=== PATIENT | female | born 1965 | race Caucasian/White ===

== ENCOUNTER 2024-05-10 13:04 | Inpatient (IN) | payer BC, SELFPAY ==
--- NOTE | ~2024-05-10 | XR_ITS ---
EXAMINATION: XR CHEST CLINICAL INFORMATION: Hip fracture COMPARISON: 08/23/2010 TECHNIQUE: Frontal view of the chest was obtained. FINDINGS: No focal consolidation, pulmonary edema, or pleural effusion. Stable cardiomediastinal silhouette. XR/XR chest 1V IMPRESSION: No acute cardiopulmonary findings. Electronically signed by: Damian Sharp MD 05/10/2024 03:53 PM EDT RP
--- NOTE | ~2024-05-10 | FL_ITS ---
EXAMINATION: FLUOROSCOPY GUIDANCE FOR NEEDLE PLACEMENT CLINICAL INFORMATION: Pinning right hip. COMPARISON: Hip radiographs yesterday. TECHNIQUE: Spot films and fluoroscopy provided during pin fixation of hip fracture. FINDINGS: 3 screws are seen extending through the right femoral neck. FLUOROSCOPY TIME: 6 minutes DOSE AREA PRODUCT: 4.34 uGy-m2 (microgray-meter squared) FL/FL guidance in OR IMPRESSION: Spot views obtained during right hip pinning. Please see Dr. Jerry Richard's operative note for full details. Electronically signed by: Bernard Black MD 05/11/2024 03:50 PM EDT
--- NOTE | ~2024-05-10 | XR_ITS ---
EXAMINATION: XR HIP, RIGHT CLINICAL INFORMATION: Fall. COMPARISON: None available. TECHNIQUE: AP view of the pelvis and AP and crosstable lateral views of the right hip. FINDINGS: There is an acute subcapital impaction fracture of the right proximal femur with slight valgus angulation. Bones are osteopenic. Left proximal femur is normal. No appreciable fractures of the innominate bones. Hip joints are well-preserved. Degenerative spondylosis is present in the lower lumbar spine. XR/XR hip RT w PEL1V IMPRESSION: Acute, valgus-impacted, right femoral subcapital fracture. Electronically signed by: Joseluis Osorio MD 05/10/2024 03:48 PM EDT RP
--- NOTE | 2024-05-10 13:07 | ECG_ITS ---
Test Reason : HIP FRACTURE Blood Pressure : / mmHG Vent. Rate : 076 BPM Atrial Rate : 076 BPM P-R Int : 170 ms QRS Dur : 090 ms QT Int : 406 ms P-R-T Axes : 061 -45 040 degrees QTc Int : 456 ms Normal sinus rhythm Left anterior fascicular block Abnormal ECG No previous ECGs available Referred By: Jonelle Piña Electronically Signed By:KACEY RUSSELL
[2024-05-10] MEDS: HYDROmorphone HCl 1 MG/ML SYRINGE IVPUSH ×3 (13:14→16:07)
[2024-05-10] MEDS: ondansetron HCL 4 MG/2 ML VIAL IVPUSH (13:14)
[2024-05-10 13:20] VITALS: BP 137/78; PULSE 78; RESP 14; TEMP 36.6; O2SAT 97; BMI 32.8
--- NOTE | 2024-05-10 13:26 | ED_ITS ---
HPI - Fall General Chief Complaint: Extremity Injury, Lower Stated Complaint: fracture right femoral head landed on hip Source: patient, EMS and old records reviewed Mode of arrival: EMS Limitations: no limitations History of Present Illness ED Provider: ELIEL HPI Narrative: 59 yo female with PMH of arthritis, DM2, not on thinners, 1 year R TKR at [facility] did well was working out today fell injuring R hip was able to get to urgent care who did xray showing R fem head fracture. She denies head strike or neck pain. No LOC. 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 No other injuries reported. MD complaint: fall Onset (ago): hour(s) (1) Fall from: standing Fall witnessed: yes, by bystander Place fall occurred: other Loss of consciousness: none Symptoms prior to fall: none Context: tripped/slipped Location of injury: pelvis Severity: moderate Quality: aching Associated symptoms (after fall): denies Related Data Allergies Allergy/AdvReac Type Severity Reaction Status Date / Time No Known Allergies Allergy Verified 05/10/24 13:20 [No Known Allergies*] Review of Systems 2 Review of Systems: Constitutional : No Fever, No Chills ENT/Mouth : No Ear Pain, No Hoarseness, No sore throat Eyes: No Eye Pain, No Swelling, No Redness, No Foreign Body Cardiovascular : No Chest Pain, No SOB Respiratory : No Cough, No Dyspnea Gastrointestinal : No Nausea, No Vomiting, No Diarrhea, No abdominal Pain Genitourinary : No Dysuria, No Hematuria Musculoskeletal : positive joint pain, No Myalgias, No Joint Swelling Skin : No Skin lacerations, No rash Neuro : No Weakness, No Numbness, No Loss of Consciousness, No Dizziness, No Headache Psych : No Anxiety/Panic, No Depression All other systems reviewed and are negative [facility] Past Medical History Attestation statement: The following information was validated with the patient. Source: old records reviewed Medical History (Updated 05/10/24 @ 16:00 by Jonelle Piña DO) Diabetes Surgical History (Updated 05/10/24 @ 13:32 by Jonelle Piña DO) Knee joint replacement status Social History Social History (Updated 05/10/24 @ 13:31 by Jonelle Piña DO) Patient Tobacco Use Status: Never used Tobacco Advance Directives: Yes Advance Directives Information Provided: Yes Advance Directives on File: No Do you have a plan to hurt others: No Plan Physical Exam 2 Vital Signs: Vital Signs: Last Vital Signs Temp 97.8 F 05/10/24 13:20 Pulse 78 05/10/24 13:20 Resp 14 05/10/24 13:20 BP 137/78 05/10/24 13:20 Pulse Ox 97 05/10/24 13:20 O2 Del Method Room Air 05/10/24 13:20 BMI result Body Mass Index 32.8 Appearance: Alert. Oriented X3. No acute distress. Eyes: Pupils equal, round and reactive to light. ENT: Pharynx normal. Neck: Normal inspection. Neck supple. CVS: Normal heart rate and rhythm. Pulses normal. Respiratory: No respiratory distress. Breath sounds normal. Abdomen: Soft and non-tender. Skin: Skin warm and dry. Normal skin color. Normal skin turgor. Extremities: No lower extremity edema. R hip area ttp no large hematoma - compartments are soft and compressible distal NV intact Neuro: Oriented X 3. No motor deficit. No sensory deficit. Medications Administered Generic Name Dose Route Start Last Admin Trade Name Freq PRN Reason Stop Dose Admin Lactated Ringer's 1,000 mls @ 100 mls/hr 05/10/24 13:15 05/10/24 13:35 Lr IVCONT 100 mls/hr .Q10H DMITRI Administration Discontinued Medications Generic Name Dose Route Start Last Admin Trade Name Freq PRN Reason Stop Dose Admin Hydromorphone HCl 1 mg 05/10/24 13:08 05/10/24 13:14 Hydromorphone Hcl 1 Mg/Ml Syringe IVPUSH 05/10/24 13:09 1 mg ONCE ONE Administration Protocol Hydromorphone HCl 1 mg 05/10/24 14:19 05/10/24 14:26 Hydromorphone Hcl 1 Mg/Ml Syringe IVPUSH 05/10/24 14:20 1 mg ONCE ONE Administration Protocol Ondansetron HCl 4 mg 05/10/24 13:08 05/10/24 13:14 Ondansetron Hcl 4 Mg/2 Ml Vial IVPUSH 05/10/24 13:09 4 mg ONCE ONE Administration Medical Decision Making Medical Decision Making MDM Narrative: 59 yo female with hx of DM2, R TKR about 1 year ago here with c/o R hip pain s/p fall while working out not on thinners no head injury + femur fracture at urgent care she is NV intact, compartment is soft at this time, xrays, EKG, IV dilaudid for pain, labs and admission for hip fracture. Differential Diagnosis Differential Diagnoses: The differential diagnosis associated with the presentation includes femur fracture Admission/Observation Consideration of admission/observation: Escalation of care including admission/observation considered admit for further management Consult Healthcare Provider Management of the patient was discussed with: [facility] (orthopedics aware will admit) Lab Data MDM Lab Attestation statement: I reviewed the patient's lab results. 05/10/24 14:25 05/10/24 14:25 Labs: Lab Results 05/10/24 Range/Units 14:25 WBC 13.3 H (4.8-10.8) X10*3/uL RBC 5.71 H (4.20-5.50) X10*6/uL Hgb 14.5 (12.0-16.0) g/dl Hct 43.8 (37.0-47.0) % MCV 76.7 L (80.0-98.0) fL MCH 25.4 L (27.0-33.0) pg MCHC 33.1 (31.0-35.0) g/dl RDW 13.1 (11.0-16.0) % Plt Count 246 (160-400) X10*3/uL MPV 8.8 L (9.4-12.3) fL Immature Gran % (Auto) 0.7 H (0.0-0.4) % Neut % (Auto) 75.2 H (45-73) % Lymph % (Auto) 19.2 L (20-40) % [place] % (Auto) 4.2 (2-11) % Eos % (Auto) 0.5 (0-4) % Baso % (Auto) 0.2 (0-2) % Lymph # (Auto) 2.6 (1.2-4.9) X10*3/uL [place] # (Auto) 0.6 (0.1-1.2) X10*3/uL Eos # (Auto) 0.1 (0.0-0.4) X10*3/uL Baso # (Auto) 0.0 (0.0-0.2) X10*3/uL Abs Immat Gran (auto) 0.09 H (0.00-0.03) X10*3/uL Absolute Neuts (auto) 10.0 H (2.0-8.3) x10*3/uL Absolute Nucleated RBC 0.000 (0.0-0.012) X10*3/uL Nucleated RBC % (auto) 0.0 (0.0-0.2) /100WBC PT 11.1 (10.9-12.4) SEC INR 1.0 (0.9-1.1) Sodium 141 (135-145) mmol/L Potassium 4.4 (3.3-5.1) mmol/L Chloride 108 (96-108) mmol/L Carbon Dioxide 27 (22-29) mmol/L Anion Gap 10 L (12-20) BUN 17 H (9-16) mg/dL Creatinine 0.85 (0.5-1.4) mg/dL Estim Creat Clear Calc 71.4 Estimated GFR > 60 Random Glucose 91 (60-115) mg/dL Calcium 10.1 (8.4-10.2) mg/dL Magnesium 2.3 (1.6-2.6) mg/dL Total Bilirubin 0.4 (0.0-1.0) mg/dL Direct Bilirubin 0.2 (0.0-0.5) mg/dL AST 24 (5-31) U/L ALT 20 (0-31) U/L Alkaline Phosphatase 94 (39-117) U/L Total Protein 7.3 (6.5-8.0) g/dL Albumin 4.6 (3.5-5.0) g/dL Blood Type A Positive Antibody Screen NEGATIVE Independent Interpretation I performed an independent interpretation of an: EKG and Plain X-Ray Interpretation: Rate: 76 Rhythm:NSR [place]: left Normal P waves. Normal SEVEN. Normal QRS complex. ST T wave : no MARLENI, inverted t waves V1 qTC: 456 prior studies: no acute ischemia The study has been interpreted contemporaneously by me. . Radiology Impression Discussion of test interpretation with radiology: I have reviewed the radiologist's reading. Independent Historian Clinical information obtained from an independent historian. History obtained from or confirmed by: EMS External Record Review External record reviewed: Office record Critical Care Time Critical Care Time Critical Care Time: Yes Total Critical Care Time: 45 Attestation: IV dilaudid x 2, review of records, consult, admission I attest to this time spent taking care of the patient Discharge Plan Discharge Clinical Impression: Closed subcapital fracture of femur Patient Disposition: Admitted As Inpatient Print Language: Telugu
[2024-05-10] MEDS: Lactated Ringers 1,000 ML 100 ML IVCONT (13:35)
[2024-05-10 14:32] LABS: MANUAL DIFF FLAG NO
[2024-05-10 14:36] LABS: Basophils Percent Auto 0.2 % (0-2); Eosinophils Absolute Auto 0.1 X10*3/uL (0.0-0.4); Eosinophils Percent Auto 0.5 % (0-4); Hematocrit 43.8 % (37.0-47.0); Hemoglobin 14.5 g/dl (12.0-16.0); Imm Gran Abs Auto 0.09 X10*3/uL (0.00-0.03); Imm Gran Pct Auto 0.7 % (0.0-0.4); Lymphocytes Absolute Auto 2.6 X10*3/uL (1.2-4.9); Lymphocytes Percent Auto 19.2 % (20-40); Mean Corpuscular HGB Conc 33.1 g/dl (31.0-35.0); Mean Corpuscular Hemoglobin 25.4 pg (27.0-33.0); Mean Corpuscular Volume 76.7 fL (80.0-98.0); Mean Platelet Volume 8.8 fL (9.4-12.3); Monocytes Absolute Auto 0.6 X10*3/uL (0.1-1.2); Monocytes Percent Auto 4.2 % (2-11); Neutrophils Percent Auto 75.2 % (45-73); Platelet Count 246 X10*3/uL (160-400); Red Blood Count 5.71 X10*6/uL (4.20-5.50); Red Cell Distribution Width 13.1 % (11.0-16.0); White Blood Count 13.3 X10*3/uL (4.8-10.8)
[2024-05-10 14:48] LABS: Prothrombin Time 11.1 SEC (10.9-12.4)
[2024-05-10 15:09] LABS: Alanine Aminotransferase 20 U/L (0-31); Albumin Level 4.6 g/dL (3.5-5.0); Alkaline Phosphatase 94 U/L (39-117); Anion Gap 10 (12-20); Aspartate Amino Transferase 24 U/L (5-31); Bilirubin Direct 0.2 mg/dL (0.0-0.5); Bilirubin Total 0.4 mg/dL (0.0-1.0); Blood Urea Nitrogen 17 mg/dL (9-16); Calcium 10.1 mg/dL (8.4-10.2); Carbon Dioxide 27 mmol/L (22-29); Chloride 108 mmol/L (96-108); Creatinine Clr Calc Pharmacy 71.4; Estimated Glomerular Filt Rate > 60; Glucose Random 91 mg/dL (60-115); Magnesium 2.3 mg/dL (1.6-2.6); Potassium 4.4 mmol/L (3.3-5.1); Sodium 141 mmol/L (135-145); Total Protein 7.3 g/dL (6.5-8.0)
[2024-05-10 16:07] VITALS: RESP 18
[2024-05-10 16:09] VITALS: BP 105/56; PULSE 85; RESP 16; TEMP 37; O2SAT 100
--- NOTE | 2024-05-10 16:34 | PHA.MEDREC ---
Addendum entered by Cathy Forrest RP 05/10/24 16:56: Reviewed by [facility] Original Note: Pharmacy Consult ? Medication Reconciliation Pharmacy has completed the medication reconciliation. Patient confirmed her medications. She confirmed her Ozempic dose once a week on Mondays and she states she last took to Monday05/06/24. She also confirmed she was taking Ferrous Sulfate 325mg 3 times a week but due to her not reacting well on it she switched to Accrufer 30mg BID. The patient and her state she is on a Combination OTC suppliment medication and the said he would bring it in [facility] for us to add to her list. The pateint states she took her medication this morning.
[2024-05-10 18:38] VITALS: BP 124/57; PULSE 79; RESP 18; TEMP 36.8; O2SAT 97
[2024-05-10] MEDS: oxyCODONE HCl Immed Release 5 MG TABLET PO (18:39)
--- NOTE | 2024-05-10 20:37 | HO.PM.IMCN ---
History of Present Illness Data of Consult Service Date: 05/10/24 Primary Care Provider: Gin Villafuerte NP [facility] Reason for consult: Medical management, surgical risk stratification Patient is a 59-year-old female with a PMH significant for mnu-xncgbad-goedlqbxr type 2 diabetes, iron deficiency anemia, hx of right TKA, HLD, and osteopenia who initially presented to the ED earlier today for evaluation of right hip pain after mechanical fall while exercising. X-rays indicated patient had an acute, valgus impacted right femoral subcapital fracture and patient was admitted to the hospital under Orthopedics for surgery in the morning. Hospitalist consult for medical management and surgical risk stratification. Patient reports she continues to experience intermittent significant right hip pain that is only partially controlled with current analgesic regimen. Otherwise patient has no acute medical complaints. No fever, chills, nausea, vomiting. No abdominal pain. Denies numbness and tingling in extremities. No chest pain/pressure, palpitations. No shortness a breath or difficulty breathing. Patient states she has a history of chronic constipation for which she often takes Colace t.i.d. every other day. Also reports that her diabetes is well managed with last A1c around 6.3. Patient has been taken off of most of her diabetic medications except for Farxiga and Ozempic. Does not regularly check her POCs but when she does they are usually under 100. Patient denies any significant cardiac history including CAD or CHF, no history of stroke or TIA. Review of Systems Review of Systems: Right hip pain Denies numbness or tingling in extremities Patient has no other acute medical complaints at this time [facility] Medical History (Updated 05/10/24 @ 22:23 by ARNULFO Tracey) Iron deficiency anemia Chronic constipation Osteopenia HLD (hyperlipidemia) Non-insulin dependent type 2 diabetes mellitus Diabetes Surgical History (Updated 05/10/24 @ 13:32 by Jonelle Piña DO) Knee joint replacement status Social History (Updated 05/10/24 @ 13:31 by Jonelle Piña DO) Household Members: Family Housing: House Do you presently have visiting nurse or other home services: No Patient Tobacco Use Status: Never used Tobacco Use of substances other than those prescribed or required for medical reasons: No Have you been hit, kicked, punched, or otherwise hurt by someone within the past year? If so, by whom?: No Advance Directives: No Advance Directives Information Provided: No Advance Directives on File: No Do you have a plan to hurt others: No Plan Recently lost weight without trying: No Patient : No : No Poor oral hygiene: No Meds Allergies Allergy/AdvReac Type Severity Reaction Status Date / Time No Known Allergies Allergy Verified 05/10/24 13:20 [No Known Allergies*] Active Medications: Current Medications Acetaminophen (Acetaminophen 325 Mg Tablet) 650 mg PO Q6H PRN PRN Reason: Pain, Mild (Pain Scale 1-3), fever or headache Lactated Ringer's (Lr) 1,000 mls @ 100 mls/hr IVCONT .Q10H [facility] Last Admin: 05/10/24 13:35 Dose: 100 mls/hr Lactated Ringer's (Lr) 1,000 mls @ 100 mls/hr IVCONT .Q10H [facility] Last Admin: 05/10/24 18:43 Dose: Not Given Cefazolin Sodium/Dextrose (Ancef) 2 gm in 50 mls @ 100 mls/hr IV PREOP ONE Stop: 05/11/24 05:59 Mirabegron (Mirabegron 25 Mg Tab.Er.24h) 25 mg PO DAILY [facility] Non-Formulary Medication (Ferric Maltol [Accrufer]) 30 mg PO BID [facility] Oxycodone HCl (Oxycodone Hcl Immed Release 5 Mg Tablet) 5 mg PO Q4H PRN PRN Reason: Pain, Moderate(Pain Scale 4-6) Last Admin: 05/10/24 18:39 Dose: 5 mg Sodium Chloride (0.9 % Sodium Chloride Flush 3 Ml Syringe) 3 ml IVFLUSH QSHIFT [facility] Home Medications ?Medication ?Instructions ?Recorded ?Confirmed ?Last Taken ?Type apremilast 30 mg tablet (Otezla) 30 mg PO BID 05/10/24 05/10/24 05/10/24 History dapagliflozin propanediol 10 mg 10 mg PO DAILY 05/10/24 05/10/24 05/10/24 History tablet (Farxiga) ferric maltol 30 mg capsule 30 mg PO BID 05/10/24 05/10/24 05/10/24 History (Accrufer) mirabegron 25 mg tablet,extended 25 mg PO DAILY 05/10/24 05/10/24 05/10/24 History release 24 hr semaglutide 0.25 mg or 0.5 mg (2 2 mg subcut MO 05/10/24 05/10/24 05/06/24 History mg/3 mL) subcutaneous pen injector (Ozempic) Physical Exam Vital Signs and Narrative: Vital Signs: Last Vital Signs Temp 98.2 F 05/10/24 18:38 Pulse 79 05/10/24 18:38 Resp 18 05/10/24 18:38 BP 124/57 L 05/10/24 18:38 Pulse Ox 97 05/10/24 18:38 O2 Del Method Room Air 05/10/24 18:38 BMI result Body Mass Index 32.8 General: AOx3, no acute distress Resp: CTA bilaterally CVS: S1, S2, RRR GI: +BS, NT, no distention Skin: Warm, dry Neuro: Cranial nerves II-XII grossly intact bilaterally. Motor grossly intact bilaterally Muskuloskeletal: Right leg shortened and externally rotated. Reduced right hip ROM secondary to pain. Extremities: No edema Psych: Appropriate affect Results Labs 05/10/24 14:25 05/10/24 14:25 Labs: Laboratory Results - last 24 hr 05/10/24 14:25 MCV 76.7 L MCH 25.4 L MCHC 33.1 RDW 13.1 Plt Count 246 MPV 8.8 L Immature Gran % (Auto) 0.7 H Neut % (Auto) 75.2 H Lymph % (Auto) 19.2 L [place] % (Auto) 4.2 Eos % (Auto) 0.5 Baso % (Auto) 0.2 Lymph # (Auto) 2.6 [place] # (Auto) 0.6 Eos # (Auto) 0.1 Baso # (Auto) 0.0 Abs Immat Gran (auto) 0.09 H Absolute Neuts (auto) 10.0 H Absolute Nucleated RBC 0.000 Nucleated RBC % (auto) 0.0 PT 11.1 INR 1.0 Anion Gap 10 L Estim Creat Clear Calc 71.4 Estimated GFR > 60 Random Glucose 91 Calcium 10.1 Magnesium 2.3 Total Bilirubin 0.4 Direct Bilirubin 0.2 AST 24 ALT 20 Alkaline Phosphatase 94 Total Protein 7.3 Albumin 4.6 Blood Type A Positive Antibody Screen NEGATIVE Imaging Radiologist's Impressions: Impressions Chest X-Ray 05/10/24 13:07 IMPRESSION: No acute cardiopulmonary findings. Electronically signed by: Damian Sharp MD 05/10/2024 03:53 PM EDT RP Hip/Pelvis X-Ray 05/10/24 13:11 IMPRESSION: Acute, valgus-impacted, right femoral subcapital fracture. Electronically signed by: Joseluis Osorio MD 05/10/2024 03:48 PM EDT RP Assessment and Plan (1) Closed subcapital fracture of femur: Qualifiers: Encounter type: initial encounter Laterality: right Qualified Code(s): S72.011A - Unspecified intracapsular fracture of right femur, initial encounter for closed fracture Status: Acute Plan Patient is a 59-year-old female with a PMH significant for agt-xdkaqxu-davtourzv type 2 diabetes, iron deficiency anemia, hx of right TKA, HLD, and osteopenia who initially presented to the ED earlier today for evaluation of right hip pain after mechanical fall while exercising. X-rays indicated patient had an acute, valgus impacted right femoral subcapital fracture and patient was admitted to the hospital under Orthopedics for surgery in the morning. Hospitalist consult for medical management and surgical risk stratification. Right hip fracture X-ray showed acute, valgus impacted, right femoral subcapital fracture Plan as per Orthopedics Patient without significant cardiac history: No CAD, mi, CHF, or CVA EKG showed normal sinus rhythm without ischemic changes Patient is a low cardiac class 1 risk for planned procedure with RCRI of 0 points No indication for additional treatment or workup prior to planned procedure Tni-veozcgz-dzgbiuyyf type 2 diabetes Has been well-controlled with diet, patient removed from most diabetic medications Random glucose 91 No need for sliding-scale insulin Hold Farxiga, Ozempic Diabetic diet once no longer NPO tomorrow Leukocytosis Patient has wbc's 13.3 Likely reactionary, no indication of infection Iron-deficiency anemia H&H stable and WNL at 14.5/43.8 Continue Accrufer Chronic constipation Patient reports takes Colace t.i.d. every other day to maintain regular bowel function Patient will be on opioids and at risk for worsening constipation Will place on bowel regimen: Colace b.i.d. and MiraLax daily Thank you for allowing us to participate in the care of this patient. Signing off at this time. Please re-consult if any acute complaints or issues arise.
[2024-05-10] MEDS: HYDROmorphone HCl 0.5 MG/0.5 ML SYRINGE IVPUSH (21:17)
[2024-05-10 21:47] VITALS: RESP 18
[2024-05-11] VITALS (14 sets, daily range): BP systolic 100–127; BP diastolic 27–88; PULSE 64–87; RESP 14–20; TEMP 35.9–37; O2SAT 91–98; BMI 31.7
[2024-05-11] MEDS: HYDROmorphone HCl 0.5 MG/0.5 ML SYRINGE IVPUSH ×4 (01:40→18:01)
[2024-05-11] MEDS: Lactated Ringers 1,000 ML 100 ML IVCONT ×3 (01:43→23:14)
[2024-05-11 07:14] LABS: MANUAL DIFF FLAG NO
[2024-05-11 07:31] LABS: Basophils Percent Auto 0.2 % (0-2); Eosinophils Absolute Auto 0.1 X10*3/uL (0.0-0.4); Eosinophils Percent Auto 0.9 % (0-4); Hematocrit 42.1 % (37.0-47.0); Hemoglobin 13.6 g/dl (12.0-16.0); Imm Gran Abs Auto 0.04 X10*3/uL (0.00-0.03); Imm Gran Pct Auto 0.4 % (0.0-0.4); Lymphocytes Absolute Auto 1.7 X10*3/uL (1.2-4.9); Lymphocytes Percent Auto 18.5 % (20-40); Mean Corpuscular HGB Conc 32.3 g/dl (31.0-35.0); Mean Corpuscular Hemoglobin 25.4 pg (27.0-33.0); Mean Corpuscular Volume 78.7 fL (80.0-98.0); Monocytes Absolute Auto 0.5 X10*3/uL (0.1-1.2); Monocytes Percent Auto 5.3 % (2-11); Neutrophils Absolute Auto 6.9 x10*3/uL (2.0-8.3); Neutrophils Percent Auto 74.7 % (45-73); Platelet Count 222 X10*3/uL (160-400); Red Blood Count 5.35 X10*6/uL (4.20-5.50); Red Cell Distribution Width 13.2 % (11.0-16.0); White Blood Count 9.3 X10*3/uL (4.8-10.8)
[2024-05-11 07:53] LABS: Anion Gap 13 (12-20); Blood Urea Nitrogen 18 mg/dL (9-16); Carbon Dioxide 26 mmol/L (22-29); Chloride 105 mmol/L (96-108); Creatinine Clr Calc Pharmacy 72.7; Estimated Glomerular Filt Rate > 60; Glucose Fasting 114 mg/dL (60-99); Potassium 4.4 mmol/L (3.3-5.1); Sodium 140 mmol/L (135-145)
--- NOTE | 2024-05-11 08:19 | HO.ANESPROP2 ---
HPI - Anesthesia Eval Consult details Narrative: right femur fracture PMFSH Active Problems Active Problems: All Active Problems Closed subcapital fracture of femur (Acute) Past Medical History Medical History (Updated 05/10/24 @ 22:23 by ARNULFO Tracey) Iron deficiency anemia Chronic constipation Osteopenia HLD (hyperlipidemia) Non-insulin dependent type 2 diabetes mellitus Diabetes Family History Family history of problems with anesthesia: No Surgical History Surgical History (Updated 05/10/24 @ 13:32 by Jonelle Piña DO) Knee joint replacement status History of Problems with Anesthesia: No Social History Social History (Updated 05/10/24 @ 13:31 by Jonelle Piña DO) Household Members: Family Housing: House Do you presently have visiting nurse or other home services: No Comment: pre-op bedrest, fx hip Patient Tobacco Use Status: Never used Tobacco Use of substances other than those prescribed or required for medical reasons: No Currently Displaying Signs/Symptoms of Drug Intoxication Withdrawal: No Have you been hit, kicked, punched, or otherwise hurt by someone within the past year? If so, by whom?: No Advance Directives: No Advance Directives Information Provided: No Advance Directives on File: No Do you have a plan to hurt others: No Plan Recently lost weight without trying: No Patient : No : No Poor oral hygiene: No Meds Allergies Allergy/AdvReac Type Severity Reaction Status Date / Time No Known Allergies Allergy Verified 05/10/24 13:20 [No Known Allergies*] Active Medications: Current Medications Acetaminophen (Acetaminophen 325 Mg Tablet) 650 mg PO Q6H PRN PRN Reason: Pain, Mild (Pain Scale 1-3), fever or headache Docusate Sodium (Docusate Sodium 100 Mg Capsule) 100 mg PO BID [facility] Last Admin: 05/11/24 07:38 Dose: Not Given Hydromorphone HCl (Hydromorphone Hcl 0.5 Mg/0.5 Ml Syringe) 0.5 mg IVPUSH Q4H PRN; Protocol PRN Reason: Pain, Severe (Pain Scale 7-10) Last Admin: 05/11/24 06:13 Dose: 0.5 mg Lactated Ringer's (Lr) 1,000 mls @ 100 mls/hr IVCONT .Q10H [facility] Last Admin: 05/11/24 01:43 Dose: 100 mls/hr Mirabegron (Mirabegron 25 Mg Tab.Er.24h) 25 mg PO DAILY [facility] Non-Formulary Medication (Ferric Maltol [Accrufer]) 30 mg PO BID [facility] Oxycodone HCl (Oxycodone Hcl Immed Release 5 Mg Tablet) 5 mg PO Q4H PRN PRN Reason: Pain, Moderate(Pain Scale 4-6) Last Admin: 05/10/24 18:39 Dose: 5 mg Polyethylene Glycol (Polyethylene Glycol 3350 17 Gm Powd.Pack) 17 gm PO DAILY [facility] Last Admin: 05/11/24 07:38 Dose: Not Given Sodium Chloride (0.9 % Sodium Chloride Flush 3 Ml Syringe) 3 ml IVFLUSH QSHIFT [facility] Last Admin: 05/11/24 07:44 Dose: Not Given Home Medications ?Medication ?Instructions ?Recorded ?Confirmed ?Last Taken ?Type apremilast 30 mg tablet (Otezla) 30 mg PO BID 05/10/24 05/10/24 05/10/24 History dapagliflozin propanediol 10 mg 10 mg PO DAILY 05/10/24 05/10/24 05/10/24 History tablet (Farxiga) ferric maltol 30 mg capsule 30 mg PO BID 05/10/24 05/10/24 05/10/24 History (Accrufer) mirabegron 25 mg tablet,extended 25 mg PO DAILY 05/10/24 05/10/24 05/10/24 History release 24 hr semaglutide 0.25 mg or 0.5 mg (2 2 mg subcut MO 05/10/24 05/10/24 05/06/24 History mg/3 mL) subcutaneous pen injector (Ozempic) Exam Height,Weight and Vital Signs: Height 5 ft 3 in Weight 81.2 kg Last Vital Signs Temp 98.1 F 05/11/24 07:14 Pulse 64 05/11/24 07:14 Resp 16 05/11/24 07:14 BP 100/58 L 05/11/24 07:14 Pulse Ox 96 05/11/24 07:14 O2 Del Method Room Air 05/11/24 07:14 Pertinent Lab Results Pertinent Lab Results: Laboratory Tests 05/10/24 05/11/24 14:25 06:03 WBC 13.3 H 9.3 RBC 5.71 H 5.35 Hgb 14.5 13.6 Hct 43.8 42.1 MCV 76.7 L 78.7 L MCH 25.4 L 25.4 L MCHC 33.1 32.3 RDW 13.1 13.2 Plt Count 246 222 MPV 8.8 L 9.0 L Immature Gran % (Auto) 0.7 H 0.4 Neut % (Auto) 75.2 H 74.7 H Lymph % (Auto) 19.2 L 18.5 L [place] % (Auto) 4.2 5.3 Eos % (Auto) 0.5 0.9 Baso % (Auto) 0.2 0.2 Lymph # (Auto) 2.6 1.7 [place] # (Auto) 0.6 0.5 Eos # (Auto) 0.1 0.1 Baso # (Auto) 0.0 0.0 Abs Immat Gran (auto) 0.09 H 0.04 H Absolute Neuts (auto) 10.0 H 6.9 Absolute Nucleated RBC 0.000 0.000 Nucleated RBC % (auto) 0.0 0.0 PT 11.1 INR 1.0 Sodium 141 140 Potassium 4.4 4.4 Chloride 108 105 Carbon Dioxide 27 26 Anion Gap 10 L 13 BUN 17 H 18 H Creatinine 0.85 0.82 Estim Creat Clear Calc 71.4 72.7 Estimated GFR > 60 > 60 Random Glucose 91 Fasting Glucose 114 H Calcium 10.1 9.0 D Magnesium 2.3 Total Bilirubin 0.4 Direct Bilirubin 0.2 AST 24 ALT 20 Alkaline Phosphatase 94 Total Protein 7.3 Albumin 4.6 Blood Type A Positive Antibody Screen NEGATIVE Airway Mallampati Class: II TM Dist: >3cm Neck ROM: Full Loose/Missing/Broken Teeth: No Heart: RRR Lungs: CTA Assessment and Plan Assessment Anesthesia Assessment: Anesthesia Plan Discussed and Chart Reviewed Final Anesthetic Review Family History of Problems with Anesthesia: No History of Problems with Anesthesia: No NPO: Yes ASA Class: III Final Preanesthetic Review: No Changes in Pt Med Stat, Meds/Allgs Chart Reviewed, Consent Obtained/Reviewed and Anes Risks/Benef Reviewed Patient Risk: Intermediate Procedure Risk: Intermediate Anesthetic Plan Anesthetic Plan: GA Disposition: Standard PACU
--- NOTE | 2024-05-11 08:29 | MHC.SHP ---
Pre-Procedural Eval Section A - 24 Hr Update-Section A only Date of Service: 05/11/24 The patient is an INPATIENT: Yes Changes since office visit: No Cold of Flu in the past 2 weeks, No New Medical Problems, No Changes in Medication and No Patient answered all questions The patient has been examined within 24 hours of the surgical procedure. The History & Physical has been completed within 30 days and I have reviewed it.: Yes Section B - Complete if H&P > 30 days Chief Complaint: R hip fracture Allergies: Allergies Allergy/AdvReac Type Severity Reaction Status Date / Time No Known Allergies Allergy Verified 05/10/24 13:20 [No Known Allergies*] Plan I have reviewed the history and physical and performed a pertinent physical examination on my patient. No changes have occurred unless specified. Time Spent With Patient Time: Total time managing care of this patient today ____ minutes.
--- NOTE | 2024-05-11 08:48 | P.CONOP_ITS ---
History of Present Illness HPI Consult date: 05/10/24 Chief complaint: R hip fracture Narrative: Patient is a 59-year-old female past medical history significant for type 2 diabetes mellitus who presents to the emergency department after a fall on her right hip Patient reports that she was exercising, when she fell, and immediately began to experience significant pain in the right hip Patient evaluated in the emergency department, where x-rays were taken revealing a minimally displaced subcapital fracture of the right femur Patient reports that she is in significant discomfort at this time Patient reports normal sensation to the distal right lower extremity No other acute complaints or concerns at this time Review of Systems 2 Review of Systems: Yes all other systems are reviewed and are negative PMFSH Past Medical History Medical History (Updated 05/10/24 @ 22:23 by ARNULFO Tracey) Iron deficiency anemia Chronic constipation Osteopenia HLD (hyperlipidemia) Non-insulin dependent type 2 diabetes mellitus Diabetes Surgical History Surgical History (Updated 05/10/24 @ 13:32 by Jonelle Piña DO) Knee joint replacement status Social History Social History (Updated 05/10/24 @ 13:31 by Jonelle Piña DO) Household Members: Family Housing: House Do you presently have visiting nurse or other home services: No Comment: pre-op bedrest, fx hip Patient Tobacco Use Status: Never used Tobacco Use of substances other than those prescribed or required for medical reasons: No Currently Displaying Signs/Symptoms of Drug Intoxication Withdrawal: No Have you been hit, kicked, punched, or otherwise hurt by someone within the past year? If so, by whom?: No Advance Directives: No Advance Directives Information Provided: No Advance Directives on File: No Do you have a plan to hurt others: No Plan Recently lost weight without trying: No Patient : No : No Poor oral hygiene: No Meds Allergies Allergy/AdvReac Type Severity Reaction Status Date / Time No Known Allergies Allergy Verified 05/10/24 13:20 [No Known Allergies*] Active Medications: Current Medications Acetaminophen (Acetaminophen 325 Mg Tablet) 650 mg PO Q6H PRN PRN Reason: Pain, Mild (Pain Scale 1-3), fever or headache Docusate Sodium (Docusate Sodium 100 Mg Capsule) 100 mg PO BID DMITRI Last Admin: 05/11/24 07:38 Dose: Not Given Droperidol (Droperidol 5 Mg/2 Ml Vial) 0.625 mg IVPUSH ONCE PRN PRN Reason: intractable nausea Stop: 05/11/24 14:24 Fentanyl (Fentanyl Citrate/Pf 100 Mcg/2 Ml Vial) 50 mcg IVPUSH Q5M PRN PRN Reason: Pain, Severe (Pain Scale 7-10) Stop: 05/11/24 14:23 Hydromorphone HCl (Hydromorphone Hcl 0.5 Mg/0.5 Ml Syringe) 0.5 mg IVPUSH Q4H PRN; Protocol PRN Reason: Pain, Severe (Pain Scale 7-10) Last Admin: 05/11/24 06:13 Dose: 0.5 mg Hydromorphone HCl (Hydromorphone Hcl 0.5 Mg/0.5 Ml Syringe) 0.5 mg IVPUSH Q5M PRN PRN Reason: Pain, Moderate to Severe (Pain Scale 4-10) Stop: 05/11/24 14:24 Lactated Ringer's (Lr) 1,000 mls @ 100 mls/hr IVCONT .Q10H [facility] Last Infusion: 05/11/24 08:00 Dose: 0 mls/hr Mirabegron (Mirabegron 25 Mg Tab.Er.24h) 25 mg PO DAILY [facility] Naloxone HCl (Naloxone Hcl 0.4 Mg/Ml Vial) 0.04 mg IVPUSH Q5M PRN PRN Reason: Excessive sedation or RR < 8 Non-Formulary Medication (Ferric Maltol [Accrufer]) 30 mg PO BID [facility] Oxycodone HCl (Oxycodone Hcl Immed Release 5 Mg Tablet) 5 mg PO Q4H PRN PRN Reason: Pain, Moderate(Pain Scale 4-6) Last Admin: 05/10/24 18:39 Dose: 5 mg Polyethylene Glycol (Polyethylene Glycol 3350 17 Gm Powd.Pack) 17 gm PO DAILY [facility] Last Admin: 05/11/24 07:38 Dose: Not Given Sodium Chloride (0.9 % Sodium Chloride Flush 3 Ml Syringe) 3 ml IVFLUSH QSHIFT [facility] Last Admin: 05/11/24 07:44 Dose: Not Given Home Medications ?Medication ?Instructions ?Recorded ?Confirmed ?Last Taken ?Type apremilast 30 mg tablet (Otezla) 30 mg PO BID 05/10/24 05/10/24 05/10/24 History dapagliflozin propanediol 10 mg 10 mg PO DAILY 05/10/24 05/10/24 05/10/24 History tablet (Farxiga) ferric maltol 30 mg capsule 30 mg PO BID 05/10/24 05/10/24 05/10/24 History (Accrufer) mirabegron 25 mg tablet,extended 25 mg PO DAILY 05/10/24 05/10/24 05/10/24 History release 24 hr semaglutide 0.25 mg or 0.5 mg (2 2 mg subcut MO 05/10/24 05/10/24 05/06/24 History mg/3 mL) subcutaneous pen injector (Ozempic) Physical Exam 2 Vital Signs: Vital Signs: Last Vital Signs Temp 98.1 F 05/11/24 07:14 Pulse 64 05/11/24 07:14 Resp 16 05/11/24 07:14 BP 100/58 L 05/11/24 07:14 Pulse Ox 96 05/11/24 07:14 O2 Del Method Room Air 05/11/24 07:14 BMI result Body Mass Index 31.7 Extrem: Other: On inspection, there is no visible deformity of the patient's right hip No limb shortening or rotation No erythema, ecchymosis, edema noted No lacerations, abrasions, open areas No evidence of infection Patient reports tenderness to gentle palpation about the hip Patient is able to flex and extend the digits of the right foot without difficulty Distal sensation intact Capillary refill brisk Results Labs 05/11/24 06:03 05/11/24 06:03 Labs: Abnormal lab results 05/10/24 05/11/24 Range/Units 14:25 06:03 WBC 13.3 H (4.8-10.8) X10*3/uL RBC 5.71 H (4.20-5.50) X10*6/uL MCV 76.7 L 78.7 L (80.0-98.0) fL MCH 25.4 L 25.4 L (27.0-33.0) pg MPV 8.8 L 9.0 L (9.4-12.3) fL Immature Gran % (Auto) 0.7 H (0.0-0.4) % Neut % (Auto) 75.2 H 74.7 H (45-73) % Lymph % (Auto) 19.2 L 18.5 L (20-40) % Abs Immat Gran (auto) 0.09 H 0.04 H (0.00-0.03) X10*3/uL Absolute Neuts (auto) 10.0 H (2.0-8.3) x10*3/uL Anion Gap 10 L (12-20) BUN 17 H 18 H (9-16) mg/dL Fasting Glucose 114 H (60-99) mg/dL H & H 05/10/24 05/11/24 Range/Units 14:25 06:03 Hgb 14.5 13.6 (12.0-16.0) g/dl Hct 43.8 42.1 (37.0-47.0) % Coagulation 05/10/24 Range/Units 14:25 INR 1.0 (0.9-1.1) All other labs normal. Diagnostic results Hip x-ray: report reviewed and image reviewed (X-rays obtained in the ED today and independently reviewed by me, Lalo Arango PA-C, demonstrate minimally displaced subcapital fracture of the right femur. ) Assessment and Plan Plan 1. Subcapital fracture of right hip Date of injury 05/10/2024 Patient is discussed with Dr. Moon, who was not available to see the patient with me at this time, and a collaborative treatment plan was formed: At this time, the patient is informed that surgery is the best treatment option for her current fracture, and that a pinning of the right hip is the procedure indicated at this time due to the minimally displaced nature of her fracture Patient is amenable to this plan Patient will be admitted to the hospital on orthopedic service Medicine will be consulted for preoperative clearance and T2DM management I educated the patient about the condition. I discussed both operative and nonoperative treatment options. The patient would like to proceed with surgery. [] The risks and benefits of operative treatment were discussed with the patient and the patient wishes to proceed with surgery. These risks include, but are not limited to, risk of damage to blood vessels, nerves, tendons, infection, recurrence, incomplete relief of preoperative symptoms, persistent pain, possible need for further surgery, and the risks associated with regional blocks and/or anesthesia. Plan is to take the patient to the operating room at some point in the next few weeks for the following procedures: [] All of the preoperative paperwork including the consent was discussed today. All of the patient's questions were answered in the clinic today. The patient understands that they will be in contact with our manufacturing scheduler to discuss scheduling their procedure. [Note particular patient concerns here] Patient denies diabetes, blood thinners, asthma, heart issues, lung issues, kidney issues, or current smoking. Procedures Date of Service Date of Service: 05/11/24
--- NOTE | 2024-05-11 08:54 | PM.HPOR ---
History of Present Illness History of Present Illness Date of Service: 05/10/24 Chief complaint: R hip fracture Narrative: Audrey Askew is a 59 year old female with past medical history significant for R TKA and type 2 diabetes being evaluated in the emergency department for right hip pain Patient reports that earlier today, she was exercising, when she fell onto her right hip, and immediately began experiencing significant discomfort X-rays taken in the ED revealed minimally displaced subcapital fracture of the right femoral neck Patient reports that she is currently in significant discomfort in her right hip, primarily in the groin Patient reports normal sensation to the distal right lower extremity No other acute complaints or concerns at this time. Review of Systems Review of Systems: Yes all other systems are reviewed and are negative PMFSH Past Medical History Medical History (Updated 05/10/24 @ 22:23 by ARNULFO Tracey) Iron deficiency anemia Chronic constipation Osteopenia HLD (hyperlipidemia) Non-insulin dependent type 2 diabetes mellitus Diabetes Surgical History Surgical History (Updated 05/10/24 @ 13:32 by Jonelle Piña DO) Knee joint replacement status Social History Social History (Updated 05/10/24 @ 13:31 by Jonelle Piña DO) Household Members: Family Housing: House Do you presently have visiting nurse or other home services: No Comment: pre-op bedrest, fx hip Patient Tobacco Use Status: Never used Tobacco Use of substances other than those prescribed or required for medical reasons: No Currently Displaying Signs/Symptoms of Drug Intoxication Withdrawal: No Have you been hit, kicked, punched, or otherwise hurt by someone within the past year? If so, by whom?: No Advance Directives: No Advance Directives Information Provided: No Advance Directives on File: No Do you have a plan to hurt others: No Plan Recently lost weight without trying: No Patient : No : No Poor oral hygiene: No Meds Allergies Allergy/AdvReac Type Severity Reaction Status Date / Time No Known Allergies Allergy Verified 05/10/24 13:20 [No Known Allergies*] Active Medications: Current Medications Acetaminophen (Acetaminophen 325 Mg Tablet) 650 mg PO Q6H PRN PRN Reason: Pain, Mild (Pain Scale 1-3), fever or headache Docusate Sodium (Docusate Sodium 100 Mg Capsule) 100 mg PO BID DMITRI Last Admin: 05/11/24 07:38 Dose: Not Given Droperidol (Droperidol 5 Mg/2 Ml Vial) 0.625 mg IVPUSH ONCE PRN PRN Reason: intractable nausea Stop: 05/11/24 14:24 Fentanyl (Fentanyl Citrate/Pf 100 Mcg/2 Ml Vial) 50 mcg IVPUSH Q5M PRN PRN Reason: Pain, Severe (Pain Scale 7-10) Stop: 05/11/24 14:23 Hydromorphone HCl (Hydromorphone Hcl 0.5 Mg/0.5 Ml Syringe) 0.5 mg IVPUSH Q4H PRN; Protocol PRN Reason: Pain, Severe (Pain Scale 7-10) Last Admin: 05/11/24 06:13 Dose: 0.5 mg Hydromorphone HCl (Hydromorphone Hcl 0.5 Mg/0.5 Ml Syringe) 0.5 mg IVPUSH Q5M PRN PRN Reason: Pain, Moderate to Severe (Pain Scale 4-10) Stop: 05/11/24 14:24 Lactated Ringer's (Lr) 1,000 mls @ 100 mls/hr IVCONT .Q10H [facility] Last Infusion: 05/11/24 08:00 Dose: 0 mls/hr Mirabegron (Mirabegron 25 Mg Tab.Er.24h) 25 mg PO DAILY [facility] Naloxone HCl (Naloxone Hcl 0.4 Mg/Ml Vial) 0.04 mg IVPUSH Q5M PRN PRN Reason: Excessive sedation or RR < 8 Non-Formulary Medication (Ferric Maltol [Accrufer]) 30 mg PO BID [facility] Oxycodone HCl (Oxycodone Hcl Immed Release 5 Mg Tablet) 5 mg PO Q4H PRN PRN Reason: Pain, Moderate(Pain Scale 4-6) Last Admin: 05/10/24 18:39 Dose: 5 mg Polyethylene Glycol (Polyethylene Glycol 3350 17 Gm Powd.Pack) 17 gm PO DAILY [facility] Last Admin: 05/11/24 07:38 Dose: Not Given Sodium Chloride (0.9 % Sodium Chloride Flush 3 Ml Syringe) 3 ml IVFLUSH QSHIFT [facility] Last Admin: 05/11/24 07:44 Dose: Not Given Home Medications ?Medication ?Instructions ?Recorded ?Confirmed ?Last Taken ?Type apremilast 30 mg tablet (Otezla) 30 mg PO BID 05/10/24 05/10/24 05/10/24 History dapagliflozin propanediol 10 mg 10 mg PO DAILY 05/10/24 05/10/24 05/10/24 History tablet (Farxiga) ferric maltol 30 mg capsule 30 mg PO BID 05/10/24 05/10/24 05/10/24 History (Accrufer) mirabegron 25 mg tablet,extended 25 mg PO DAILY 05/10/24 05/10/24 05/10/24 History release 24 hr semaglutide 0.25 mg or 0.5 mg (2 2 mg subcut MO 05/10/24 05/10/24 05/06/24 History mg/3 mL) subcutaneous pen injector (OzempDer Grüne Punkt) Physical Exam Vital Signs: Vital Signs: Last Vital Signs Temp 98.1 F 05/11/24 07:14 Pulse 64 05/11/24 07:14 Resp 16 05/11/24 07:14 BP 100/58 L 05/11/24 07:14 Pulse Ox 96 05/11/24 07:14 O2 Del Method Room Air 05/11/24 07:14 BMI result Body Mass Index 31.7 Extrem: Other: On inspection, there is no visible deformity of the patient's right hip No limb shortening or rotation noted No erythema, ecchymosis, evidence of infection No lacerations, abrasions, open areas Patient reports mild tenderness to palpation of the lateral aspect of her right hip Patient is able to flex and extend the digits of the right foot without difficulty Distal sensation intact Capillary refill brisk Results Labs 05/11/24 06:03 05/11/24 06:03 Labs: Abnormal lab results 05/10/24 05/11/24 Range/Units 14:25 06:03 WBC 13.3 H (4.8-10.8) X10*3/uL RBC 5.71 H (4.20-5.50) X10*6/uL MCV 76.7 L 78.7 L (80.0-98.0) fL MCH 25.4 L 25.4 L (27.0-33.0) pg MPV 8.8 L 9.0 L (9.4-12.3) fL Immature Gran % (Auto) 0.7 H (0.0-0.4) % Neut % (Auto) 75.2 H 74.7 H (45-73) % Lymph % (Auto) 19.2 L 18.5 L (20-40) % Abs Immat Gran (auto) 0.09 H 0.04 H (0.00-0.03) X10*3/uL Absolute Neuts (auto) 10.0 H (2.0-8.3) x10*3/uL Anion Gap 10 L (12-20) BUN 17 H 18 H (9-16) mg/dL Fasting Glucose 114 H (60-99) mg/dL H & H 05/10/24 05/11/24 Range/Units 14:25 06:03 Hgb 14.5 13.6 (12.0-16.0) g/dl Hct 43.8 42.1 (37.0-47.0) % Coagulation 05/10/24 Range/Units 14:25 INR 1.0 (0.9-1.1) All other labs normal. Diagnostic results Hip x-ray: report reviewed and image reviewed (X-rays obtained in the ED today and independently reviewed by me, Lalo Arango PA-C, demonstrate minimally displaced subcapital fracture of the right femur. ) Assessment and Plan (1) Closed subcapital fracture of femur: Qualifiers: Encounter type: initial encounter Laterality: right Qualified Code(s): S72.011A - Unspecified intracapsular fracture of right femur, initial encounter for closed fracture Status: Acute Plan 1. Subcapital fracture right femur Date of injury 05/10/2024 Patient is a discussed with Dr. Moon, and a collaborative treatment plan was formed: Patient will be admitted to orthopedic service this time for surgery tomorrow At this time, the patient is informed that surgical intervention is the best treatment option available for her current fracture Patient is informed that a CRPP of her right hip is likely indicated, due to the minimally displaced nature of the fracture The risks and benefits of operative treatment were discussed with the patient and the patient wishes to proceed with surgery. These risks include, but are not limited to blood clots, risk of damage to blood vessels, nerves, tendons, infection, recurrence, incomplete relief of preoperative symptoms, persistent pain, possible need for further surgery, and the risks associated with regional blocks and/or anesthesia. Plan is to take the patient to the operating room on 05/11/2024 for the following procedures: 1. CRPP of right hip under general anesthesia Hospitalist service consulted for surgical clearance and type 2 diabetes management Patient is amenable to this plan Quality Stroke Does the patient have a stroke diagnosis?: No VTE Prior VTE?: No VTE Risk Level:: Surgical - very high VTE Device Contraindication: N/A - Device Ordered VTE Drug Contraindication: N/A - Med Ordered Procedures Date of Service Date of Service: 05/11/24
--- NOTE | 2024-05-11 09:46 | MHC.CM.PN ---
CM attempted to complete [employer]. Patient off unit at this time.
--- NOTE | 2024-05-11 09:52 | P.BOP_ITS ---
Brief Operative Note Date of Service: 05/11/24 Pre-op diagnosis: right femoral neck fracture Post-op diagnosis: same Procedure: CRPP right femoral neck Implants: 6.5 mm cannulated screws x 3 Surgeon: Jerry Moon MD Anesthesia: GLMA and local Was an Radiography Technician used for this Procedure?: No Estimated blood loss (mL): 20 Pathology: none sent Condition: stable Disposition: PACU
--- NOTE | 2024-05-11 10:19 | PC.NURSE ---
faxed report to haresh elder
[2024-05-11] MEDS: ceFAZolin Sodium/Dextrose,Iso 2 GM/50 ML PIGGYBACK IV (14:37)
--- NOTE | 2024-05-11 15:52 | MHC.CM.PN ---
Patient lives in a home w/ , son, mother in law. Functionally independent. Denies use of DME or services. PCP Gin Villafuerte VIDEO OPERATOR Reports she has an HCP listing her , [place], as HCA. Copy requested. DP: Pending PT eval. Goal is home w/ services. 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 Will update CM w/ name and CM will send referral via [employer].
[2024-05-11] MEDS: oxyCODONE HCl ER 10 MG TAB.ER.12H PO (20:32)
[2024-05-11] MEDS: Docusate Sodium 100 MG CAPSULE PO (20:32)
[2024-05-12 03:55] VITALS: BP 110/58; PULSE 74; RESP 16; TEMP 36.1; O2SAT 94
[2024-05-12 07:19] VITALS: BP 115/59; PULSE 73; RESP 16; TEMP 36; O2SAT 94
[2024-05-12] MEDS: polyethylene glycoL 3350 17 GM POWD.PACK PO (07:49)
[2024-05-12] MEDS: Docusate Sodium 100 MG CAPSULE PO ×2 (07:49→20:35)
[2024-05-12] MEDS: oxyCODONE HCl ER 10 MG TAB.ER.12H PO ×2 (07:49→20:35)
[2024-05-12] MEDS: Mirabegron 25 MG TAB.ER.24H PO (07:50)
[2024-05-12] MEDS: Enoxaparin Sodium 40 MG/0.4 ML SYRINGE SUBCUT (08:03)
[2024-05-12] MEDS: Lactated Ringers 1,000 ML 100 ML IVCONT ×2 (08:46→19:35)
--- NOTE | 2024-05-12 09:00 | MHC.CM.PN ---
PT rec home w/ services vs [facility]. Patient does not wish to go to [facility] and prefers [facility] for home services. Referral sent via [employer].
[2024-05-12 09:19] LABS: MANUAL DIFF FLAG NO
[2024-05-12 09:21] LABS: Basophils Percent Auto 0.1 % (0-2); Eosinophils Absolute Auto 0.1 X10*3/uL (0.0-0.4); Eosinophils Percent Auto 1.5 % (0-4); Hematocrit 38.1 % (37.0-47.0); Hemoglobin 12.5 g/dl (12.0-16.0); Imm Gran Abs Auto 0.02 X10*3/uL (0.00-0.03); Imm Gran Pct Auto 0.2 % (0.0-0.4); Lymphocytes Absolute Auto 2.3 X10*3/uL (1.2-4.9); Lymphocytes Percent Auto 26.9 % (20-40); Mean Corpuscular HGB Conc 32.8 g/dl (31.0-35.0); Mean Corpuscular Hemoglobin 25.6 pg (27.0-33.0); Mean Corpuscular Volume 78.1 fL (80.0-98.0); Mean Platelet Volume 8.9 fL (9.4-12.3); Monocytes Absolute Auto 0.5 X10*3/uL (0.1-1.2); Monocytes Percent Auto 5.4 % (2-11); Neutrophils Absolute Auto 5.6 x10*3/uL (2.0-8.3); Neutrophils Percent Auto 65.9 % (45-73); Platelet Count 197 X10*3/uL (160-400); Red Blood Count 4.88 X10*6/uL (4.20-5.50); Red Cell Distribution Width 13.2 % (11.0-16.0); White Blood Count 8.5 X10*3/uL (4.8-10.8)
--- NOTE | 2024-05-12 09:53 | PM.PNORT ---
Subjective Subjective Date of Service: 05/12/24 Interval history: 59-year-old female postop day 1 status post CRPP of right hip Patient is resting comfortably in the chair Patient reports that she is feeling ?much better? than prior to surgery, and that her pain is well-controlled Patient states she was ambulatory both yesterday and today Patient was evaluated by PT yesterday, and states that PT would like her to be cleared for stairs before discharge home Patient would also prefer to be cleared on stairs, but states that sheadamant about returning home upon discharge, and will not require short-term rehab No other acute complaints or concerns at this time Physical Exam Vital Signs: Vital Signs: Last Vital Signs Temp 96.8 F 05/12/24 07:19 Pulse 73 05/12/24 07:19 Resp 16 05/12/24 07:19 BP 115/59 L 05/12/24 07:19 Pulse Ox 94 05/12/24 07:19 O2 Del Method Room Air 05/12/24 07:19 O2 Flow Rate 2 05/11/24 11:12 BMI result Body Mass Index 31.7 Extrem: Other: Dressing on right hip clean, dry, intact No evidence of surrounding erythema or ecchymosis Patient reports no tenderness to palpation about the surgery site Compartments soft, nontender Distal sensation intact Capillary refill brisk Procedures Date of Service Date of Service: 05/12/24 Progress Note: A&P Assessment and plan (1) Closed subcapital fracture of femur: Status: Acute Plan 1. Subcapital fracture of right femur status post CRPP DOS 05/11/2024 Patient appears to be recovering well postoperatively Patient is educated about the typical recovery course Continue with pain management Continue PT/OT Per PT and the patient, plan is for discharge when cleared on stairs on Monday Patient is amenable to this plan Continue Lovenox for DVT prophylaxis Time Spent With Patient Time: Total time managing care of this patient today ____ minutes. Quality Stroke Does the patient have a stroke diagnosis?: No VTE Prior VTE?: No VTE Risk Level:: Surgical - very high VTE Device Contraindication: N/A - Device Ordered VTE Drug Contraindication: N/A - Med Ordered
--- NOTE | 2024-05-12 10:04 | HO.POSTANES ---
Post Anesthesia Evaluation Post Anesthesia Evaluation Date of Service: 05/12/24 Vital Signs: Vital Signs Temp Pulse Resp BP Pulse Ox O2 Del Method 05/12/24 07:19 96.8 F 73 16 115/59 L 94 Room Air 05/12/24 03:55 97.0 F 74 16 110/58 L 94 Room Air 05/11/24 23:50 97.3 F 78 16 103/60 94 Room Air Anesthesia: General LMA Mental Status: Awake Pain Control: Satisfactory Nausea/Vomiting: None Hydration: Adequate Anesthesia-Related Issues: No Anes. Related Issues
[2024-05-12] MEDS: oxyCODONE HCl Immed Release 5 MG TABLET PO ×2 (10:52→16:38)
[2024-05-12 15:51] VITALS: BP 105/59; PULSE 73; RESP 18; TEMP 36.8; O2SAT 97
--- NOTE | 2024-05-12 16:43 | PC.NURSE ---
Pt. voided 275ml, PVR 330ml, stated she will try to void again later.
[2024-05-12 20:40] VITALS: BP 100/56; PULSE 71; RESP 20; TEMP 36.3; O2SAT 94
[2024-05-12] MEDS: HYDROmorphone HCl 0.5 MG/0.5 ML SYRINGE IVPUSH (22:12)
[2024-05-12 23:30] VITALS: BP 93/51; PULSE 83; RESP 18; TEMP 36.2; O2SAT 93
[2024-05-13] MEDS: Lactated Ringers 1,000 ML 100 ML IVCONT (05:25)
[2024-05-13 06:48] LABS: MANUAL DIFF FLAG NO
[2024-05-13 07:20] LABS: Basophils Percent Auto 0.4 % (0-2); Eosinophils Absolute Auto 0.2 X10*3/uL (0.0-0.4); Eosinophils Percent Auto 2.5 % (0-4); Hematocrit 39.1 % (37.0-47.0); Hemoglobin 12.4 g/dl (12.0-16.0); Imm Gran Abs Auto 0.03 X10*3/uL (0.00-0.03); Imm Gran Pct Auto 0.4 % (0.0-0.4); Lymphocytes Absolute Auto 2.2 X10*3/uL (1.2-4.9); Lymphocytes Percent Auto 28.3 % (20-40); Mean Corpuscular HGB Conc 31.7 g/dl (31.0-35.0); Mean Corpuscular Hemoglobin 25.1 pg (27.0-33.0); Mean Corpuscular Volume 79.1 fL (80.0-98.0); Mean Platelet Volume 9.2 fL (9.4-12.3); Monocytes Absolute Auto 0.6 X10*3/uL (0.1-1.2); Monocytes Percent Auto 7.5 % (2-11); Neutrophils Absolute Auto 4.7 x10*3/uL (2.0-8.3); Neutrophils Percent Auto 60.9 % (45-73); Platelet Count 198 X10*3/uL (160-400); Red Blood Count 4.94 X10*6/uL (4.20-5.50); Red Cell Distribution Width 13.3 % (11.0-16.0); White Blood Count 7.7 X10*3/uL (4.8-10.8)
[2024-05-13 07:53] VITALS: BP 113/66; PULSE 75; RESP 14; TEMP 36.6; O2SAT 93
[2024-05-13] MEDS: Enoxaparin Sodium 40 MG/0.4 ML SYRINGE SUBCUT (08:10)
[2024-05-13] MEDS: Docusate Sodium 100 MG CAPSULE PO (08:10)
[2024-05-13] MEDS: Mirabegron 25 MG TAB.ER.24H PO (08:10)
[2024-05-13] MEDS: oxyCODONE HCl ER 10 MG TAB.ER.12H PO (08:10)
[2024-05-13] MEDS: polyethylene glycoL 3350 17 GM POWD.PACK PO (08:11)
--- NOTE | 2024-05-13 12:30 | MHC.CM.PN ---
DP: PT HAS BEEN MEDICALLY CLEARED FOR DC HOME WITH [facility] FOR P.T. AT HOME. [facility] WAS NOTIFIED OF TODAY'S DC. [facility] WILL TRANSPORT
--- NOTE | 2024-05-13 12:48 | PM.PNORT ---
Subjective Subjective Date of Service: 05/13/24 Interval history: 59-year-old female postop day 2 status post CRPP of right hip Patient is resting comfortably in the chair Patient reports that she is feeling ?much better? than prior to surgery, and that her pain is well-controlled Patient states she was ambulatory both yesterday and today Patient was cleared on stairs by PT this morning, and is recommended for discharge home with VNA services No other acute complaints or concerns at this time Physical Exam Vital Signs: Vital Signs: Last Vital Signs Temp 97.8 F 05/13/24 07:53 Pulse 75 05/13/24 07:53 Resp 14 05/13/24 07:53 BP 113/66 05/13/24 07:53 Pulse Ox 93 05/13/24 07:53 O2 Del Method Room Air 05/13/24 07:53 O2 Flow Rate 2 05/11/24 11:12 BMI result Body Mass Index 31.7 Extrem: Other: Dressing on right hip clean, dry, intact No evidence of surrounding erythema or ecchymosis Patient reports no tenderness to palpation about the surgery site Compartments soft, nontender Distal sensation intact Capillary refill brisk Procedures Date of Service Date of Service: 05/13/24 Progress Note: A&P Assessment and plan (1) Closed subcapital fracture of femur: Status: Acute Plan 1. Subcapital fracture of right femur status post CRPP DOS 05/11/2024 Patient appears to be recovering well postoperatively Patient is educated about the typical recovery course Continue with pain management Continue PT/OT Plan is for discharge home today with VNA services Patient is amenable to this plan Continue Lovenox for DVT prophylaxis Time Spent With Patient Time: Total time managing care of this patient today ____ minutes. Quality Stroke Does the patient have a stroke diagnosis?: No VTE Prior VTE?: No VTE Risk Level:: Surgical - very high VTE Device Contraindication: N/A - Device Ordered VTE Drug Contraindication: N/A - Med Ordered
--- NOTE | 2024-05-13 12:49 | P.DS_ITS ---
DS: Providers Provider Date of Service: 05/13/24 Date of admission: 05/10/24 16:32 Primary care physician: Gin Villafuerte NP Consults: 05/10/24 16:27 Consult to Hospitalist Stat Comment: Consulting Provider: Hospitalist Reason For Exam: Clearance for surgery at 0800, T2DM management DS: Diagnosis Discharge Diagnosis (1) Closed subcapital fracture of femur: Status: Acute DS: Summary Hospital Course Hospital Course: The patient underwent a successful closed reduction percutaneous pinning of right hip on 05/11/2024, was transferred to PACU and then to the floor to recover. During their stay, their vitals were stable, afebrile at 97.8. Labs were unremarkable, H/H 12.4/39.1. POD 1 she was started on Lovenox 40 mg a day for DVT ppx, they also received Physical Therapy services twice a day. Physical therapy should include gait training, core and lumbar strength, glute strength. Posterior precautions intact. WBAT. Prior to discharge, her dressing was changed, incision clean dry and intact. Dressing should remain intact and dry at all times. Any concerns with the dressing, please contact orthopedic office. No showering. The plan is to be discharged Time Attestation Discharge Coordination Time (in mins): 30 Quality: Safe Use of Opioids Does Pt have an Active Cancer Diagnosis on the Problem List?: No Quality: Stroke Does the patient have a stroke diagnosis?: No Physical Exam Vital Signs: Vital Signs: Last Vital Signs Temp 97.8 F 05/13/24 07:53 Pulse 75 05/13/24 07:53 Resp 14 05/13/24 07:53 BP 113/66 05/13/24 07:53 Pulse Ox 93 05/13/24 07:53 O2 Del Method Room Air 05/13/24 07:53 O2 Flow Rate 2 05/11/24 11:12 BMI result Body Mass Index 31.7 Extrem: Other: Dressing on right hip clean, dry, intact No evidence of surrounding erythema or ecchymosis Patient reports no tenderness to palpation about the surgery site Compartments soft, nontender Distal sensation intact Capillary refill brisk DS: Data Data Completed and Pending Labs on day of discharge: Laboratory Results - last 24 hr 05/13/24 05:36 WBC 7.7 RBC 4.94 Hgb 12.4 Hct 39.1 MCV 79.1 L MCH 25.1 L MCHC 31.7 RDW 13.3 Plt Count 198 MPV 9.2 L Immature Gran % (Auto) 0.4 Neut % (Auto) 60.9 Lymph % (Auto) 28.3 Morris % (Auto) 7.5 Eos % (Auto) 2.5 Baso % (Auto) 0.4 Lymph # (Auto) 2.2 Morris # (Auto) 0.6 Eos # (Auto) 0.2 Baso # (Auto) 0.0 Abs Immat Gran (auto) 0.03 Absolute Neuts (auto) 4.7 Absolute Nucleated RBC 0.000 Nucleated RBC % (auto) 0.0 Discharge Plan Discharge Anticipated Discharge Date/Time: 05/13/24 17:31 Patient Disposition: Home Health Service Discharge Diagnosis: S/p CRPP of R hip Referrals: [facility] [Outside] - 3-5 Days (HOME SERVICES FOR PHYSICAL THERAPY- A THERAPIST WILL CALL YOU TO SET UP FIRST VISIT) Madeline Mcdaniels PA-C [Physician Program Rep] - 2 Weeks (06/04/24 11:30 [facility] [place] [facility] Madeline Mcdaniels PA-C) Discharge Medications: New docusate sodium 100 mg Capsule 100 mg PO BID 30 Days Qty: 60 0RF acetaminophen 325 mg Tablet 650 mg PO Q6H PRN (Reason: Pain, Mild (Pain Scale 1-3), fever or headache) 30 Days Qty: 240 0RF oxycodone 5 mg Tablet 5 mg PO Q4H PRN (Reason: Pain, Moderate(Pain Scale 4-6)) 7 Days Qty: 42 0RF Rx Instructions: Partial Fill upon patient request. enoxaparin 40 mg/0.4 mL Syringe 40 mg subcut Q24H 42 Days Qty: 16.8 0RF Continued mirabegron 25 mg tablet extended release 24 hr 25 mg PO DAILY dapagliflozin propanediol [Farxiga] 10 mg tablet 10 mg PO DAILY Otezla 30 mg tablet 30 mg PO BID Accrufer 30 mg capsule 30 mg PO BID Ozempic 0.25 mg or 0.5 mg (2 mg/3 mL) pen injector 2 mg subcut MO Discharge Orders: Discharge Order (Routine); Ordered 05/13/24 Ordered By: Lalo Nba Diet: Advance to usual diet Activity on Discharge: Use cane or walker Stand Alone Forms: Patient Portal Discharge page Print Language: Czech Care Plan Goals: Restore normal function of right hip Health Concerns: N/A Plan of Treatment: Physical therapy for hip CRPP: WBAT, gait training, range of motion, strength Limit stair climbing No showering, no tub bath-keep dressing clean dry and intact No driving for 6 weeks Continue Lovenox once a day for 6 weeks Follow-up with [facility] in 2 weeks Assessment: Stable for discharge
--- NOTE | 2024-05-13 13:02 | P.F2F_ITS ---
Service Date Service Date: 05/13/24 Encounter Date of encounter: 05/13/24 Reasons for Services Signs and symptoms assessed: Status post CRPP of right hip Homebound: Leaving the home is medically contraindicated at this time without the asist of a device and/or another person due th the listed conditions above and below. Reason homebound: unsteady gait / fall risk, pain with ambulation and poor balance / fall risk Certification: Based on the above findings, I certify that this patient is confined to the home and needs intermittent correction care, physical therapy and/or speech therapy, or continues to need occupational therapy. The patient is under my care, and I have initiated the establishment of the plan of care. The patient will be followed by a physician who will periodically review the plan of care. Time Spent With Patient Time: Total time managing care of this patient today ____ minutes.
[2024-05-13] MEDS: oxyCODONE HCl Immed Release 5 MG TABLET PO (13:16)
--- NOTE | 2024-05-14 11:23 | W.PM.OPN ---
Operative Note Operative Note Date of Service: 05/11/24 Narrative: Date of Service: 05/11/24 Pre-op diagnosis: right femoral neck fracture Post-op diagnosis: same Procedure: CRPP right femoral neck Implants: 6.5 mm cannulated screws x 3 Surgeon: Jerry Moon MD Anesthesia: GLMA and local Was an Bioinformatics Specialist used for this Procedure?: No Estimated blood loss (mL): 20 Pathology: none sent Condition: stable Disposition: PACU Procedure in detail:? Patient was brought to the operating room and prepped and draped in standard sterile fashion.? Time-out was called to identify proper site procedure proper surgeon and IV antibiotics per weight were administered.? She was positioned on the fracture table with slight internal rotation? and biplanar fluoroscopy confirmed initial fracture reduction.? I then made a stab incision at the level of the lesser. This was a valgus impacted femoral neck fracture. I then placed 3 k-wires in a inverted triangle configuration through the femoral neck and into the femoral head. The inferior wire was posteromedial along the calcar. I used biplanar fluoro to confirm wire position on the AP and lateral projection. I was satisfied with the position of the k-wires. I measured and then placed three partially threaded cancellous screws over the wires. I was satisfied with the fracture reduction and screw position. I copiously irrigated closed with absorbable sutures edilia and injected 30 mL of into the area of the incisions.? Patient was placed in sterile dressing awakened from anesthesia brought to recovery room stable condition there were no known complications.
== END 2024-05-13 13:25 | disposition home health service (06) | DRG 308 ==
LOC: HO.ED 16:11 → HO.EDOVER 16:47 → HO.S3 17:33
PROVIDERS: Orthopaedic Surgery; Emergency Provider Emergency Medicine; PCP Nurse Practitioner Acute Care
PROC: 0QS636Z Reposition Right Upper Femur with Intramedullary Internal Fixation Device, Percutaneous Approach (ICD-10-PCS; principal; 2024-05-11 08:00)
DX: S72.011A Unspecified intracapsular fracture of right femur, initial encounter for closed fracture (principal); D50.9 Iron deficiency anemia, unspecified; E11.9 Type 2 diabetes mellitus without complications; K59.09 Other constipation; W19.XXXA Unspecified fall, initial encounter; Z79.899 Other long term (current) drug therapy
CPT/HCPCS: 36415; 71045; 73502; 80048; 80076; 83735; 85025; 85610; 86850; 86900; 86901; 93005; 97116; 97161; 97166; 97530; 99285; C1713; C1758; J0131; J0690; J1100; J1170; J1650; J1885; J2371; J2405; J2704; J2795; J3010; J7120

== ENCOUNTER → 2024-05-10 16:32 | Outpatient (BNV) | payer BC, SELFPAY | PROVIDERS: Emergency Provider Emergency Medicine; PCP Nurse Practitioner Acute Care | DX: S72.011A Unspecified intracapsular fracture of right femur, initial encounter for closed fracture (principal) | CPT/HCPCS: 27235; 99024; 99222; G0180 ==

== ENCOUNTER → 2024-05-10 16:32 | Outpatient (BNV) | payer BC, SELFPAY | PROVIDERS: Emergency Provider Emergency Medicine; PCP Nurse Practitioner Acute Care; Visit Provider Student in an Organized Health Care Education/Training Program | DX: S72.011A Unspecified intracapsular fracture of right femur, initial encounter for closed fracture (principal); E11.9 Type 2 diabetes mellitus without complications | CPT/HCPCS: 99222 ==

== ENCOUNTER 2024-05-24 12:18 | Outpatient (AMB) | payer BC, SELFPAY ==
--- NOTE | 2024-05-24 12:23 | MHC.OFFVIS ---
Intake Visit Reasons: 2 WK PO: CRPP of right hip 05/11/24 Intake Note: Audrey is a 59 year old female who presents today for a post operative visit S/P CRPP of right femoral neck w/ Dr Moon DOS: 05/11/2024. Patient reports she is doing well, states her pain mostly comes with ambulation. She has no concerns today. Allergies No Known Allergies [No Known Allergies*] Allergy (Verified 05/24/24 12:25) HPI HPI 2 WK PO: CRPP of right hip 05/11/24: Details: 59-year-old female who presents in the office today 13 days status post CRPP right femoral neck which was performed on 05/11/[address] Moon. While in the office today, the patient reports she is doing well. She mentions pain mainly with ambulation. She has no concerns today. PFSH Medical History (Updated 05/21/24 @ 00:01 by Regine Sims) Iron deficiency anemia Chronic constipation Osteopenia HLD (hyperlipidemia) Non-insulin dependent type 2 diabetes mellitus Diabetes Surgical History Knee joint replacement status Social History (Updated 05/10/24 @ 13:31 by Jonelle Piña DO) Household Members: Family Housing: House Do you presently have visiting nurse or other home services: No Comment: pre-op bedrest, fx hip Patient Tobacco Use Status: Never used Tobacco service: No Review of Systems Const All systems reviewed & are unremarkable except as noted in HPI and below Physical Exam Const General: cooperative, healthy appearing and no acute distress Resp Effort & Inspection: normal respiratory effort and able to speak in complete sentences Cardio Rate: regular rate Peripheral pulses: Peripheral pulses 2+ throughout GI Palpation (GI): Soft to palpation Skin Lesions: no lesions Rashes: no rashes Extrem Other: Right hip: Incision site is clean, dry, and intact. Kareem intact. No surrounding erythema or drainage. No signs of infection. Good internal and external rotation. Good hip flexion and extension. NVI. Assessment & Plan Assessment & Plan (1) Closed subcapital fracture of femur: Code(s): S72.019A - Unspecified intracapsular fracture of unspecified femur, initial encounter for closed fracture Category: Medical Qualifiers: Encounter type: initial encounter Laterality: right Qualified Code(s): S72.011A - Unspecified intracapsular fracture of right femur, initial encounter for closed fracture Plan Ms. Askew is a 59-year-old female who presents in the office today 13 days status post CRPP right femoral neck which was performed on 05/11/[address] Moon. While in the office today, the patient reports she is doing well. She mentions pain mainly with ambulation. She has no concerns today. Kareem were removed, and steri-strips were applied. I have placed a new referral for physical therapy. The patient will continue to work with physical therapy on glute, core, and quad strengthening as well as gait training with a walker. Follow-up will be in 4 weeks, or sooner if needed. Orders: Orders PT Evaluation and Treatment 05/24/24 S72.011A - Unspecified intracapsular fracture of right femur, initial encounter for closed fracture Patient Instructions: Scribed by Sophia Nieto medical accounts receivable specialist, for Madeline Mcdaniels PA-C on 05/24/24 at 12:45 pm EST. Coding Level of Care Code Global (79112) Diagnoses Closed subcapital fracture of femur S72.011A Encounter type: initial encounter Laterality: right
== END 2024-05-24 13:01 | disposition home or self-care (01) ==
PROVIDERS: PCP Nurse Practitioner Acute Care; Visit Provider Physician Assistant
DX: S72.011A Unspecified intracapsular fracture of right femur, initial encounter for closed fracture (principal)
CPT/HCPCS: 99024

== ENCOUNTER → 2024-05-24 12:18 | Outpatient (BNVA) | payer BC, SELFPAY | PROVIDERS: PCP Nurse Practitioner Acute Care; Visit Provider Physician Assistant ==

== ENCOUNTER 2024-06-21 11:06 | Outpatient (REF) | payer BC, SELFPAY | END 2024-06-21 11:07 | disposition home or self-care (01) | LOC: HO.HOSX 11:06 | PROVIDERS: Visit Provider Physician Assistant | DX: M25.551 Pain in right hip (principal) | CPT/HCPCS: 73502 ==

== ENCOUNTER 2024-06-21 13:02 | Outpatient (AMB) | payer BC, SELFPAY ==
--- NOTE | 2024-06-21 13:26 | MHC.OFFVIS ---
Intake Visit Reasons: PO: CRPP of right hip 05/11/24-w/xray Intake Note: Audrey is a 59 year old female who presents today for a post operative visit S/P CRPP of right femoral neck w/ Dr Moon DOS: 05/11/2024. Patient reports she is doing well, states having some soreness with movement. Allergies No Known Allergies [No Known Allergies*] Allergy (Verified 05/24/24 12:25) HPI HPI PO: CRPP of right hip 05/11/24-w/xray: Details: 59-year-old female who presents in the office today 5 weeks status post right CRPP right femoral neck which was performed on 05/11/[address] Moon. I last saw the patient in the office when a new referral was placed to physical therapy to work on glute, core, and quad strengthening as well as gait training. While in the office today, the patient reports she is doing well; however, she mentions mild soreness with movement. [facility] Medical History (Updated 05/21/24 @ 00:01 by Regine Sims) Iron deficiency anemia Chronic constipation Osteopenia HLD (hyperlipidemia) Non-insulin dependent type 2 diabetes mellitus Diabetes Surgical History Knee joint replacement status Social History (Updated 05/10/24 @ 13:31 by Jonelle Piña DO) Household Members: Family Housing: House Do you presently have visiting nurse or other home services: No Comment: pre-op bedrest, fx hip Patient Tobacco Use Status: Never used Tobacco service: No Review of Systems Const All systems reviewed & are unremarkable except as noted in HPI and below Physical Exam Const General: cooperative, healthy appearing and no acute distress Resp Effort & Inspection: normal respiratory effort and able to speak in complete sentences Cardio Rate: regular rate Peripheral pulses: Peripheral pulses 2+ throughout GI Palpation (GI): Soft to palpation Skin Lesions: no lesions Rashes: no rashes Extrem Other: Right hip: Incision site is clean, dry and intact. No signs of infection. Incision site is fully healed and well approximated. Able to demonstrate straight leg raise. Good internal and external rotation. NVI. Assessment & Plan Assessment & Plan (1) Closed subcapital fracture of femur: Code(s): S72.019A - Unspecified intracapsular fracture of unspecified femur, initial encounter for closed fracture Category: Medical Qualifiers: Encounter type: initial encounter Laterality: right Qualified Code(s): S72.011A - Unspecified intracapsular fracture of right femur, initial encounter for closed fracture Plan Ms. Askew is a 59-year-old female who presents in the office today 5 weeks status post right CRPP right femoral neck which was performed on 05/11/[address] Moon. I last saw the patient in the office when a new referral was placed to physical therapy to work on glute, core and quad strengthening as well as gait training. While in the office today, the patient reports she is doing well; however, she mentions mild soreness with movement. The patient will continue working with physical therapy on glute, core and quad strengthening as well as gait training. The goal is to wean her off of the cane. Anticipated return to work day is 07/27/2024, full-time, regular duty. Follow-up will be in 6 weeks, or sooner if needed. X-rays of the right hip, which were obtained while in the office today and were reviewed by me, Madeline Mcdaniels PA-C, revealed: Intact orthopedic hardware with routine healing. Orders: Orders XR hip RT min 2V Today M25.559 - Pain in unspecified hip Patient Instructions: Scribed by Sophia Nieto, medical sales associate, for Madeline Mcdaniels PA-C on 06/21/24 at 1:40 pm EST. Coding Level of Care Code Global (26258) Diagnoses Closed subcapital fracture of femur S72.011A Encounter type: initial encounter Laterality: right
== END 2024-06-21 15:45 | disposition home or self-care (01) ==
LOC: HO.HOS 13:02
PROVIDERS: PCP Nurse Practitioner Acute Care; Visit Provider Physician Assistant
DX: S72.011A Unspecified intracapsular fracture of right femur, initial encounter for closed fracture (principal)
CPT/HCPCS: 99024

== ENCOUNTER 2024-07-30 16:03 | Outpatient (REF) | payer BC, SELFPAY ==
--- OUTSIDE RECORDS SUMMARY | 2024-08-01 03:10 | XMS_ITS ---
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
== END 2024-07-30 16:04 | disposition home or self-care (01) ==
LOC: HO.HOSX 16:03
PROVIDERS: Visit Provider Physician Assistant
DX: Z13.89 Encounter for screening for other disorder (principal)

== ENCOUNTER 2024-08-01 10:21 | Outpatient (REF) | payer BC, SELFPAY | END 2024-08-01 10:22 | disposition home or self-care (01) | LOC: HO.HOSX 10:21 | PROVIDERS: Visit Provider Physician Assistant | DX: M25.559 Pain in unspecified hip (principal) | CPT/HCPCS: 72170 ==

== ENCOUNTER 2024-08-01 13:11 | Outpatient (AMB) | payer BC, SELFPAY ==
--- NOTE | 2024-08-01 13:30 | A.OFFVIS_ITS ---
Intake Visit Reasons: PO: CRPP of right hip 05/11/24-w/xray Intake Note: Audrey is a 59 year old female who presents today for a post op appointment s/p CRPP right femoral neck 05/11/24 NE. Patient reports she is doing well. No pain or discomfort at the moment. Allergies No Known Allergies [No Known Allergies*] Allergy (Verified 08/01/24 13:39) HPI HPI PO: CRPP of right hip 05/11/24-w/xray: Details: 59-year-old female who presents in the office today 3 months status post CRPP right femoral neck which was performed on 05/11/[address] Moon. I last saw the patient in the office on 06/21/24 when she was recommended to continue working with physical therapy and the goal is to wean her off the cane. We anticipated a return to work date on 07/27/24, full-time, regular duty. While in the office today, the patient reports she is doing well post- operatively. She currently denies any pain or discomfort in the right hip. [facility]LY [facility] Medical History (Updated 05/21/24 @ 00:01 by Regine Sims) Iron deficiency anemia Chronic constipation Osteopenia HLD (hyperlipidemia) Non-insulin dependent type 2 diabetes mellitus Diabetes Surgical History Knee joint replacement status Social History (Updated 05/10/24 @ 13:31 by Jonelle Piña DO) Household Members: Family Housing: House Do you presently have visiting nurse or other home services: No Comment: pre-op bedrest, fx hip Patient Tobacco Use Status: Never used Tobacco service: No Review of Systems Const All systems reviewed & are unremarkable except as noted in HPI and below Physical Exam Const General: cooperative, healthy appearing and no acute distress Resp Effort & Inspection: normal respiratory effort and able to speak in complete sentences Cardio Rate: regular rate Peripheral pulses: Peripheral pulses 2+ throughout GI Palpation (GI): Soft to palpation Skin Lesions: no lesions Rashes: no rashes Extrem Other: Right hip: Full range of motion in all planes. NVI. Assessment & Plan Assessment & Plan (1) Closed subcapital fracture of femur: Code(s): S72.019A - Unspecified intracapsular fracture of unspecified femur, initial encounter for closed fracture Category: Medical Qualifiers: Encounter type: initial encounter Laterality: right Qualified Code(s): S72.011A - Unspecified intracapsular fracture of right femur, initial encounter for closed fracture Plan Ms. Askew is a 59-year-old female who presents in the office today 3 months status post CRPP right femoral neck which was performed on 05/11/[address] Moon. I last saw the patient in the office on 06/21/24 when she was recommended to continue working with physical therapy and the goal is to wean her off the cane. We anticipated a return to work date on 07/27/24, full-time, regular duty. While in the office today, the patient reports she is doing well post- operatively. She currently denies any pain or discomfort in the right hip. The patient can return to normal activities as tolerated. Follow-up will be PRN, or sooner if needed. X-rays of the right hip, which were obtained while in the office today and were reviewed by me, Madeline Mcdaniels PA-C, revealed: Intact orthopedic hardware with routine healing. Orders: Orders XR pelvis 1-2V 08/01/24 M25.559 - Pain in unspecified hip Patient Instructions: Scribed by Sophia Nieto, medical record specialist, for Madeline Mcdaniels PA-C on 08/01/24 at 1:53 pm EST. Coding Level of Care Code Global (57613) Diagnoses Closed subcapital fracture of femur S72.011A Encounter type: initial encounter Laterality: right
== END 2024-08-01 13:54 | disposition home or self-care (01) ==
PROVIDERS: PCP Nurse Practitioner Acute Care; Visit Provider Physician Assistant
DX: S72.011A Unspecified intracapsular fracture of right femur, initial encounter for closed fracture (principal)
CPT/HCPCS: 99024

== ENCOUNTER → 2024-08-28 12:32 | Outpatient (BNVA) | payer OTHER, SELFPAY | PROVIDERS: PCP Nurse Practitioner Acute Care | DX: Z13.89 Encounter for screening for other disorder (principal) | CPT/HCPCS: 86481; 99211 ==

== ENCOUNTER 2025-03-05 10:17 | Emergency (ER) | payer BC, OTHER, SELFPAY ==
--- NOTE | ~2025-03-05 | XR_ITS ---
EXAMINATION: XR KNEE, RIGHT CLINICAL INFORMATION: Fall, hematoma to right knee, R/O fracture COMPARISON: None available. TECHNIQUE: Four views of the right knee. FINDINGS: Total knee arthroplasty has been performed There is no lucency at the interface of bone, middle, and cement. There is subtle valgus across the joint line. There is a joint effusion. XR/XR knee RT 4V IMPRESSION: Joint effusion. Total knee arthroplasty. Electronically signed by: Ld Choi MD 03/05/2025 12:04 PM EDT
[2025-03-05 10:19] VITALS: BP 147/77; PULSE 73; RESP 14; TEMP 36.7; O2SAT 100; BMI 31.8
--- NOTE | 2025-03-05 11:34 | ED.FALL ---
HPI - Fall General Chief Complaint: Fall Stated Complaint: Fall Time Seen by Provider: 03/05/25 11:19 Source: patient Mode of arrival: ambulatory Limitations: no limitations History of Present Illness ED Provider: Dr. 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 She reached for a an emesis bag and tripped over a phone cord causing her to fall forward. She struck her face on a walker and landed on her right knee but also twisted her left hip. She sustained a small laceration to her lower lip. She developed a hematoma to her right knee. She was able to stand and walk after the incident. She is currently complaining of moderate to severe pain in her right knee with pain with flexion and extension. Patient has been applying ice to the right knee since the injury occurred. Related Data Home Medications ?Medication ?Instructions ?Recorded ?Confirmed apremilast 30 mg tablet (Otezla) 30 mg PO BID 05/10/24 05/10/24 dapagliflozin propanediol 10 mg 10 mg PO DAILY 05/10/24 05/10/24 tablet (Farxiga) ferric maltol 30 mg capsule 30 mg PO BID 05/10/24 05/10/24 (Accrufer) mirabegron 25 mg tablet,extended 25 mg PO DAILY 05/10/24 05/10/24 release 24 hr semaglutide 0.25 mg or 0.5 mg (2 2 mg subcut MO 05/10/24 05/10/24 mg/3 mL) subcutaneous pen injector (Ozempic) Previous Rx's ?Medication ?Instructions ?Recorded acetaminophen 325 mg tablet 650 mg (2 x 325 mg) PO Q6H PRN 05/13/24 Pain, Mild (Pain Scale 1-3), fever or headache 30 days #240 tabs docusate sodium 100 mg capsule 100 mg PO BID 30 days #60 caps 05/13/24 enoxaparin 40 mg/0.4 mL 40 mg (0.4 mL) subcut Q24H 42 days 05/13/24 subcutaneous syringe #16.8 mL oxycodone 5 mg tablet 5 mg PO Q4H PRN Pain, 05/13/24 Moderate(Pain Scale 4-6) 7 days #42 tabs Allergies Allergy/AdvReac Type Severity Reaction Status Date / Time No Known Allergies (No Known Allergy Verified 03/05/25 10:23 Allergies*) Review of Systems Review of Systems: Yes all other systems are reviewed and are negative [facility] Past Medical History Medical History (Updated 03/05/25 @ 12:35 by Vinh Spencer MD) Iron deficiency anemia Chronic constipation Osteopenia HLD (hyperlipidemia) Non-insulin dependent type 2 diabetes mellitus Diabetes Surgical History Knee joint replacement status Social History Social History (Updated 05/10/24 @ 13:31 by Jonelle Piña DO) Household Members: Family Housing: House Do you presently have visiting nurse or other home services: No Comment: pre-op bedrest, fx hip Patient Tobacco Use Status: Never used Tobacco Smoked in Last 30 Days: No Use of substances other than those prescribed or required for medical reasons: No Advance Directives: No Advance Directives Information Provided: Yes service: No Physical Exam Vital Signs: Vital Signs: Last Vital Signs Temp 98.1 F 03/05/25 10:19 Pulse 73 03/05/25 10:19 Resp 14 03/05/25 10:19 BP 147/77 H 03/05/25 10:19 Pulse Ox 100 03/05/25 10:19 O2 Del Method Room Air 03/05/25 10:19 BMI result Body Mass Index 31.8 Vital signs revealed an elevated blood pressure of 147/77 otherwise unremarkable Exam: General: Awake, alert in no distress Head: Normocephalic, atraumatic EENT: PERRL, Lids small, superficial laceration to lower lip, sclera normal, conjunctiva normal, nose normal , ears normal, throat without erythema or exudates Neck: Supple, no adenopathy Lung: breath sounds symmetric, no wheezing, rales or rhonchi Chest: symmetric movement, nontender Heart: regular rate and rhythm, normal S1, S2 no murmurs or rubs Abdomen: soft, non-tender, nondistended, normal bowel sounds Back: no vertebral tenderness, no CVAT Extremities: 3 x 3 cm hematoma to the lateral aspect of the right knee with tenderness palpation over the hematoma and tibial region of her knee. Limited flexion secondary to pain. Patient has no pain with lateral log rolling or flexion on both hips. Neuro: Awake, alert, oriented, normal speech Psych: Pleasant, cooperative Medications Administered Discontinued Medications Generic Name Dose Route Start Last Admin Trade Name Freq PRN Reason Stop Dose Admin Diphtheria/Tetanus/Acell Pertussis 0.5 ml 03/05/25 11:35 03/05/25 11:53 Diphth,Pertus(Acell),Tet Adult 0.5 Ml Syringe IM 03/05/25 11:36 Not Given .ONCE ONE Ibuprofen 400 mg 03/05/25 11:35 03/05/25 11:59 Ibuprofen 400 Mg Tablet PO 03/05/25 11:36 400 mg ONCE STA Administration Medical Decision Making Medical Decision Making [facility] Narrative: 59-year-old female with a history of diabetes mellitus, hyperlipidemia, osteopenia, iron deficient anemia, right hip fracture, right total knee replacement 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 She reached for a an emesis bag and tripped over a phone cord causing her to fall forward. She struck her face on a walker and landed on her right knee but also twisted her left hip. She sustained a small laceration to her lower lip. She developed a hematoma to her right knee. She was able to stand and walk after the incident. She is currently complaining of moderate to severe pain in her right knee with pain with flexion and extension. Patient has been applying ice to the right knee since the injury occurred. Vital signs revealed an elevated blood pressure otherwise unremarkable exam revealed a superficial nonsuturable laceration to her lower lip, right lateral knee hematoma this was tender to palpation and limited flexion of the right knee secondary to pain. Differential diagnosis: ?Includes but is not limited to superficial lip laceration, right knee hematoma, right knee contusion, right knee fracture Course: 11:44 I ordered the following: Tdap immunization IM, ibuprofen 400 mg orally for pain, right knee three-view x-ray. 12:37 X-ray revealed no acute fracture. Radiologist noted a joint effusion. I did discuss these findings with the patient and the patient's family. At this time I do not think that the patient needs a knee immobilizer, crutches or cane. Patient was advised to keep her knee elevated, apply ice in the take ibuprofen and Tylenol for pain. This is a work-related injury and she will need to follow up with [facility]. I told her that she can not return to work until she is medically cleared by [facility] and she was given a work note stating this fact. Admission/Observation Consideration of admission/observation: Escalation of care including admission/observation considered (Yes) Independent Interpretation I performed an independent interpretation of an: Plain X-Ray Interpretation: My independent interpretation patient's is as follows: No acute fracture, total knee replacement is intact Radiology Impression Discussion of test interpretation with radiology: I have reviewed the radiologist's reading. Radiologist Impression: XR knee RT 4V IMPRESSION: Joint effusion. Total knee arthroplasty. Electronically signed by: Ld Choi MD 03/05/2025 12:04 PM EDT Chronic Conditions Patient?s care impacted by: Diabetes and Other (Hyperlipidemia) Discharge Plan Discharge Clinical Impression: Work related injury Fall from slip, trip, or stumble Qualifiers: Encounter type: initial encounter Qualified Code(s): W01.0XXA - Fall on same level from slipping, tripping and stumbling without subsequent striking against object, initial encounter Laceration of lip Qualifiers: Encounter type: initial encounter Qualified Code(s): S01.511A - Laceration without foreign body of lip, initial encounter Traumatic hematoma of right knee Qualifiers: Encounter type: initial encounter Qualified Code(s): S80.01XA - Contusion of right knee, initial encounter Patient Disposition: Home, Self-Care Instructions: Contusion in Adults (ED), Laceration Without Closure (ED) Additional Instructions: The x-ray of your right knee did not reveal any broken bones or damage to the knee replacement. The radiologist noted a small joint effusion which could be related to this injury or may be chronic. Please see the radiology reading below. You also had a contusion (hematoma) to your knee. Keep your knee elevated, apply ice for 15 minutes 4 to 6 times a day for the next 2-3 days to help reduce the pain and swelling in your knee. Take ibuprofen 200 mg pills, 2 pills every 6 hours as needed for pain or fever. Take Tylenol (acetaminophen) 500 mg pills, 2 pills every 6 hours as needed for pain or fever. I do not want you to return to work today but I want you to call our occupational health clinic, [facility] to make a follow up appointment this week. You can not return to work until you were evaluated by [facility] medically clears you. Please return to the emergency department if your symptoms get worse or if you develop any symptoms that are concerning to you. XR knee RT 4V IMPRESSION: Joint effusion. Total knee arthroplasty. Electronically signed by: Ld Choi MD 03/05/2025 12:04 PM EDT Prescriptions: No Action mirabegron 25 mg tablet extended release 24 hr 25 mg PO DAILY dapagliflozin propanediol [Farxiga] 10 mg tablet 10 mg PO DAILY Otezla 30 mg tablet 30 mg PO BID Accrufer 30 mg capsule 30 mg PO BID Ozempic 0.25 mg or 0.5 mg (2 mg/3 mL) pen injector 2 mg subcut MO docusate sodium 100 mg Capsule 100 mg PO BID 30 Days Qty: 60 0RF acetaminophen 325 mg Tablet 650 mg PO Q6H PRN (Reason: Pain, Mild (Pain Scale 1-3), fever or headache) 30 Days Qty: 240 0RF oxycodone 5 mg Tablet 5 mg PO Q4H PRN (Reason: Pain, Moderate(Pain Scale 4-6)) 7 Days Qty: 42 0RF Rx Instructions: Partial Fill upon patient request. enoxaparin 40 mg/0.4 mL Syringe 40 mg subcut Q24H 42 Days Qty: 16.8 0RF Referrals: [facility] [Provider Group] Referral Note: Trip and fall at work, right knee contusion with hematoma and superficial laceration to lip Clinical Impression: Traumatic hematoma of right knee; Laceration of lip; Work related injury Stand Alone Forms: Work/School Release Print Language: Algerian
[2025-03-05 12:43] VITALS: BP 147/77; PULSE 73; RESP 14; TEMP 36.7; O2SAT 100
--- OUTSIDE RECORDS SUMMARY | 2025-03-05 13:05 | XMS_ITS | Clinical Summary ---
Author Organization [address] [place] [address] Address [address] [place] [address] Phone Care Team Providers Care Shuttle Preparation Supervisor Name Role Phone French Richey MD Primary Care Provider [phone] Allergies No known active allergies Medications Otezla 30 mg tablet 4 Active estradioL (ESTRACE) 0.01 % (0.1 mg/gram) vaginal cream INSERT 1 GM VAGINALLY EVERY MONDAY AND Monday 4 Active icosapent ethyL (VASCEPA) 1 gram capsule TAKE 2 CAPSULES BY MOUTH TWICE A DAY WITH MEALS 30 90 4 Active mirabegron (MYRBETRIQ) 25 mg 24 hr tablet Take 1 tablet (25 mg total) by mouth 1 (one) time each day. 4 Active rosuvastatin (CRESTOR) 10 mg tablet 4 Active Ozempic 1 mg/dose (4 mg/3 mL) injection pen INJECT 1 MG SUBCUTANEOUSLY WEEKLY X 30 DAYS 4 Active Social History Tobacco Use Types Packs/Day Years Used Date Smoking Tobacco: Never Smokeless Tobacco: Never Tobacco Cessation:Counseling Given: Not Answered Comments Unknown Sex and Gender Information Value Date Recorded Sex Assigned at Not on file Legal Sex Female 2:02 PM EST Gender Identity Not on file Sexual Orientation Not on file Obstetrics History Last Filed Vital Signs Vital Sign Reading Time Taken Comments Blood Pressure 105/71 07/31/2024 1:19 PM EST Pulse 97 07/31/2024 1:19 PM EST Temperature 36.1 C (97 F) 07/31/2024 1:19 PM EST Respiratory Rate - - Oxygen Saturation - - Inhaled Oxygen Concentration - - Weight 81.6 kg (180 lb) 07/31/2024 1:19 PM EST Height 162.6 cm (5' 4 ) 07/31/2024 1:19 PM EST Body Mass Index 30.9 07/31/2024 1:19 PM EST Plan of Treatment Health Maintenance Due Date Last Done Comments Breast Cancer Screening 1963 Diabetes: Annual Foot Exam 1973 Diabetes: Annual Retina Eye Exam 1973 Pneumococcal Vaccine: 50+ Years (1 of 2 - PCV) 1982 Cervical Cancer Screening: Pap Smear 1984 COVID-19 Vaccine (3 - Moderna risk series) 10/23/2020 09/25/2020, 08/28/2020 Cholesterol Screening (Lipid Panel) 03/19/2024 Colorectal Cancer Screening: Colonoscopy 03/19/2024 Depression Screening 03/19/2024 HIV Screening 03/19/2024 Hepatitis C Screening 03/19/2024 Social Influencers of Health Screening 03/19/2024 Diabetes: Annual GFR (Glomerular Filtration Rate) 04/17/2024 04/17/2023 Diabetes: Annual Urine Albumin-Creatinine Ratio (uACR) 07/31/2024 Diabetes: Blood Sugar Control Test (HGBA1C) 07/31/2024 Influenza Vaccine (#1) 2025 , 06/10/2022, 05/21/2018, Additional history exists DTaP,Tdap,and Td Vaccines (2 - Td or Tdap) 09/26/2033 09/26/2023 RSV Immunization Adult Patients (1 - 1-dose 75+ series) 2038 Zoster Vaccines Completed 09/16/2023, 02/03/2023 HIB Vaccines Aged Out No longer eligi ble based on patient's age to complete this topic HPV Vaccines Aged Out No longer eligi ble based on patient's age to complete this topic Hepatitis A Vaccines Aged Out No long er eligible based on patient's age to complete this topic Hepatitis B Vaccines Aged Out No long er eligible based on patient's age to complete this topic IPV Vaccines Aged Out No longer eligi ble based on patient's age to complete this topic MMR Vaccines Aged Out No longer eligi ble based on patient's age to complete this topic Meningococcal ACWY Vaccine Aged Out N o longer eligible based on patient's age to complete this topic Meningococcal B Vaccine Aged Out No l onger eligible based on patient's age to complete this topic RSV Immunization Patients Under 20 months Aged Out No longer eligible based on patient's age to complete this topic Varicella Vaccines Aged Out No longer eligible based on patient's age to complete this topic Procedures Procedure Name Priority Date/Time Associated Diagnosis Comments INTERFERON GAMMA INTERPRETATION Routine 12/25/2024 9:40 AM EDT Psoriasis vulgaris Pure hyperglyceridemia Pure hypercholesterolem ia Drug therapy INTERFERON GAMMA ANTIGEN 2 Routine 12/25/2024 9:40 AM EDT Psoriasis vulgaris Pure hyperglyceridemia Pure hypercholesterolem ia Drug therapy INTERFERON GAMMA ANTIGEN 1 Routine 12/25/2024 9:40 AM EDT Psoriasis vulgaris Pure hyperglyceridemia Pure hypercholesterolem ia Drug therapy INTERFERON GAMMA MITOGEN Routine 12/25/2024 9:40 AM EDT Psoriasis vulgaris Pure hyperglyceridemia Pure hypercholesterolem ia Drug therapy INTERFERON GAMMA NIL Routine 12/25/2024 9:40 AM EDT Psoriasis vulgaris Pure hyperglyceridemia Pure hypercholesterolem ia Drug therapy TRIGLYCERIDES Routine 12/25/2024 9:40 AM EDT Psoriasis vulgaris Pure hyperglyceridemia Pure hypercholesterolem ia Drug therapy INTERFERON GAMMA FOR TB, QUALITATIVE Routine 12/25/2024 9:40 AM EDT Psoriasis vulgaris Pure hyperglyceridemia Pure hypercholesterolem ia Drug therapy from Last 3 Months Results * Interferon gamma interpretation (12/25/2024 9:40 AM EDT) [facility] Quantiferon Plus Interpretation Negative Negative LAB CHEMISTRY METHOD 12/26/2024 10:42 AM EDT [facility] Blood Venous blood specimen / Unknown Venipuncture / Unknown 12/25/2024 9:40 AM EDT 12/25/2024 11:43 AM EDT Aga ARREDONDO LAB BLOOD ORDERABLES Final Result [facility] [address] [place] [address], [place] [phone] * Interferon gamma antigen 2 (12/25/2024 9:40 AM EDT) Blood Venous blood specimen / Unknown Venipuncture / Unknown 12/25/2024 9:40 AM EDT 12/25/2024 11:43 AM EDT Aga ARREDONDO LAB BLOOD ORDERABLES Final Result [facility] [address] [place] [address], [place] [phone] * Inteferon gamma antigen 1 (12/25/2024 9:40 AM EDT) Blood Venous blood specimen / Unknown Venipuncture / Unknown 12/25/2024 9:40 AM EDT 12/25/2024 11:43 AM EDT Aga ARREDONDO LAB BLOOD ORDERABLES Final Result [facility] [address] [place] [address], [place] [phone] * Interferon gamma mitogen (12/25/2024 9:40 AM EDT) Blood Venous blood specimen / Unknown Venipuncture / Unknown 12/25/2024 9:40 AM EDT 12/25/2024 11:43 AM EDT Aga ARREDONDO LAB BLOOD ORDERABLES Final Result [facility] [address] [place] [address], [place] [phone] * Interferon gamma NIL (12/25/2024 9:40 AM EDT) Blood Venous blood specimen / Unknown Venipuncture / Unknown 12/25/2024 9:40 AM EDT 12/25/2024 11:43 AM EDT Aga ARREDONDO LAB BLOOD ORDERABLES Final Result [facility] [address] [place] [address], [place] [phone] * Triglycerides (12/25/2024 9:40 AM EDT) Triglycerides 102 0 - 150 mg/dL LAB CHEMISTRY METHOD 12/25/2024 1:51 PM EDT [facility] Blood Venous blood specimen / Unknown Venipuncture / Unknown 12/25/2024 9:40 AM EDT 12/25/2024 11:41 AM EDT Aga ARREDONDO LAB BLOOD ORDERABLES Final Result Performing Organization Address City/[facility]/ZIP Co de Phone Number [facility] [address] [place] [address], [place] [phone] from Last 3 Months Insurance [facility] Care Teams Shuttle Preparation Supervisor Relationship Specialty Start Date End Date French Richey MD [address] [place] [id number] PCP - General Internal Medicine 07/02/24
--- OUTSIDE RECORDS SUMMARY | 2025-03-05 13:05 | XMS_ITS | Encounter Summary ---
Author Organization [facility] Address [address] [place] [address] Care Team Providers Care Nitric Acid Plant Operator Name Role Phone French Richey MD Primary Care Provider [phone] Encounter Details Date Type Department Care Team (Late st Contact Info) Description 01/23/2024 Scanned Document [facility] [address] [address] Eric Melara MD [address] [place] [address] Social History Tobacco Use Types Packs/Day Years Used Date Smoking Tobacco: Never Assessed Comments Unknown Sex and Gender Information Value Date Recorded Sex Assigned at Female 01/22/2024 11:08 AM EDT Legal Sex Female 9:47 AM EDT Gender Identity Female 01/22/2024 11:08 AM EDT Sexual Orientation Choose not to disclose 2023 11:08 AM EDT documented as of this encounter Plan of Treatment Not on file documented as of this encounter Visit Diagnoses Not on filedocumented in this encounter Care Teams Nitric Acid Plant Operator Relationship Specialty Start Date End Date French Richey MD [address] [address] PCP - General 01/22/24 documented as of this encounter
--- OUTSIDE RECORDS SUMMARY | 2025-03-05 13:05 | XMS_ITS | Patient Health Record ---
Author Organization [facility] [address] Address [address] [place] [address] Care Team Providers Care Box Stamper Name Role Phone SAURAV LEIVA Unavailable [phone] Allergies No Known Allergies Results Component Value Reference Range Notes LDL CHOLESTEROL, DIRECT Reviewed date:05/23/2024 12:47:57 PM Interpretation: Performing Lab: Notes/Report: LDL CHOLESTEROL, DIRECT 88 0-100 mg/dL FERRITIN Reviewed date:05/23/2024 12:47:57 PM Interpretation: Performing Lab: Notes/Report: FERRITIN 163 8-252 ng/mL TOTAL IRON BINDING CAPACITY Reviewed date:05/23/2024 12:47:57 PM Interpretation: Performing Lab: Notes/Report: TOTAL IRON BINDING CAPACITY 329 250-450 ug/dL IRON (FE) 69 40-150 ug/dL % FE SATURATION 21 15-50 % UA WITH CULTURE IF INDICATED Reviewed date:05/24/2024 11:37:57 AM Interpretation: Performing Lab: Notes/Report: Band Saw Marker - Saige Fuentes MD [address] [place] [id number] [employer], a member of [facility] Original Ordering Provider: SAURAV LEIVA KITCHEN HAND GLUCOSE, (UA) NEGATIVE NEGATIVE mg/dL BILIRUBIN, URINE NEGATIVE NEGATIVE KETONE, URINE NEGATIVE NEGATIVE mg/dL SPECIFIC GRAVITY, URINE 1.022 1.003-1.030 BLOOD, URINE NEGATIVE NEGATIVE PH, URINE 5.0 5.0-8.0 PROTEIN, URINE NEGATIVE <= TRACE mg/dl UROBILINOGEN, URINE 0.2 0.2-1.0 E.U./dL NITRITE, URINE POSITIVE NEGATIVE LEUKOCYTE ESTERASE, URINE LARGE NEGATIVE RBC, URINE 5 0-4 /HPF WBC, URINE 45 0-4 /HPF EPITH CELLS, URINE 42 0-60 /LPF BACTERIA, URINE HEAVY NEGATIVE HYALINE CAST, URINE 3 0-3 /LPF TSH Reviewed date:05/23/2024 12:47:57 PM Interpretation: Performing Lab: Notes/Report: Band Saw Marker - Saige Fuentes MD [address] [place] [address] [employer], a member of [facility] TSH 1.10 0.40-4.00 uIU/ml VITAMIN D, 25-HYDROXY Reviewed date:05/23/2024 12:47:57 PM Interpretation: Performing Lab: Notes/Report: VITAMIN D, 25-HYDROXY 30 30-80 ng/mL LIPID PROFILE Reviewed date:05/23/2024 12:48:10 PM Interpretation: Performing Lab: Notes/Report: Original Ordering Provider: SAURAV LEIVA NP CHOLESTEROL 202 0-200 mg/dL TRIGLYCERIDES 516 0-150 mg/dL Triglyceride value is >= 500. Calculated LDL is not meaningful. Direct LDL has been added. HDL CHOLESTEROL 35 >40 mg/dL LDL CALCULATED TNP 0-100 mg/dL TC-HDLC RATIO 5.8 0-4.4 mg/dL CBC WITH AUTO DIFF Reviewed date:05/23/2024 11:16:38 AM Interpretation: Performing Lab: Notes/Report: Band Saw Marker - Saige Fuentes MD [address] [place] [address] [employer], a member of [facility] Original Ordering Provider: SAURAV LEIVA NP WBC 7.2 4.8-10.8 x10-3/uL RBC 5.6 3.8-4.8 x10-6/uL HEMOGLOBIN 14.1 11.5-16.0 g/dL HEMATOCRIT 44.5 35-47 % MCV 79.6 79-98 fL MCH 25.2 27-32 pg MCHC 31.7 32-37 g/dL RDW 13.1 11-15 % PLT COUNT 311 130-400 x10-3/uL MEAN PLATELET VOLUME 8.9 7-11 fL NRBC % AUTO 0.0 <1 % NEUT % 44.7 LYMPH % 44.6 MONO % 6.8 EOS % 2.9 BASO % 0.6 IMMATURE GRANULOCYTES % 0.4 NRBC # AUTO 0.00 <0.1 x10-3/uL ABSOLUTE NEUT 3.20 1.5-7.0 x10-3/uL LYMPH # 3.19 1-5.0 x10-3/uL MONO # 0.49 0.2-1.0 x10-3/uL EOS # 0.21 0-0.5 x10-3/uL BASO # 0.04 0-0.2 x10-3/uL IMMATURE GRANULOCYTES # 0.03 0-0.03 x10-3/uL GLYCOHEMOGLOBIN PROFILE Reviewed date:05/23/2024 12:47:57 PM Interpretation: Performing Lab: Notes/Report: Band Saw Marker - Saige Fuentes MD [address] [place] [address] [employer], a member of [facility] Original Ordering Provider: SAURAV LEIVA NP GLYCATED HEMOGLOBIN A1C 6.0 <6.5 % ESTIMATED AVERAGE GLUCOSE 126 URINE CULTURE Reviewed date:05/25/2024 08:44:37 AM Interpretation: Performing Lab: Notes/Report: PIPERACILLIN/TAZOBACTAM <=4 Sensitive AMIKACIN 4 Sensitive NITROFURANTOIN <=16 Sensitive MEROPENEM <=0.25 Sensitive LEVOFLOXACIN 4 Resistant GENTAMICIN <=1 Sensitive CIPROFLOXACIN >=4 Resistant CEFEPIME <=0.12 Sensitive CEFTRIAXONE <=0.25 Sensitive CEFTAZIDIME <=0.5 Sensitive CEFOXITIN <=4 Sensitive CEFAZOLIN,URINE 2 Sensitive AMPICILLIN/SULBACTAM <=2 Sensitive AMOXICILLIN/CLAVULANIC ACID 4 Sensitive TRIMETHOPRIM/SULFAMETHOXAZOLE <=20 Sensitive Band Saw Marker - Saige Fuentes MD Antibiotics JORDAN Interpretation [address] [place] [address] Organism: ESCHERICHIA COLI [employer], a member of [facility] Specimen Source: URINE,CLEAN CATCH Collected: May 23, 2024 09:05 Original Ordering Provider: SAURAV LEIVA NP URINE CULTURE ESCHERICHIA COLI URINE CULTURE COLONY COUNT URINE CULTURE >100,000 US Abdomen Ltd Reviewed date:06/11/2024 01:02:43 PM Interpretation: Performing Lab: Notes/Report: Original Ordering Provider: SAURAV LEIVA NP [facility] Malaika Dexa Axial Skeleton Reviewed date:06/12/2024 04:58:57 PM Interpretation: Performing Lab: Notes/Report: Original Ordering Provider: SAURAV LEIVA NP [facility] Reason For Referral Diagnosis 1 Subcutaneous mass of back (R22.2) [facility] Organization [facility] [address] Referring Provider First Name SAURAV Referring Provider Last Name ABBIE Referring Provider Speciality Internal M edicine Referred Provider SHANKAR WYATT Referred Provider Specialty General Surg hernán General Notes [address] [facility], [facility] [address], [place] [address], phone - , fax- [phone] Clinical Notes Tanisha Camp 06/12 02:37:08 PM >, referral faxed with Juan whipple Redena 07/10/2024 03:38:24 PM > Scheduled for 07/31 at 1:15 pm. Pt aware Referral Priority Routine Medications Medication SIG (Take, Route, Frequency, Duration) Notes Start Date End Date Status Melaleuca 1:20 as directed Subcutaneous Active Otezla 30 MG 1 tablet Orally Twic e a day Active Farxiga 10 MG 1 tablet Orally Once a day Active Crestor 20 MG 1 tablet Orally Once a day Active Vascepa 1 GM 2 capsules with meal s Orally Twice a day Active ACCRUFeR 30 MG 1 capsule 1 hour bef ore or 2 hours after meals Orally Twice a day; Duration: 30 days 03/05/2024 Active Ondansetron 4 MG 1 tablet on the tong ue and allow to dissolve prn nausea/vomiting Orally twice day; Duration: 30 days 10/14/2024 Active Calcium 600 600 MG 1 tablet with food Orally Twice a day; Duration: 90 days 10/14/2024 Active Ozempic (1 MG/DOSE) 4 MG/3ML 1mg Subcutaneous weekly; Duration: 30 days Active Vitamin D3 50 MCG (1999 UT) 1 capsule Orally Once a day; Duration: 90 days 10/14/2024 Active Lovenox 40 MG/0.4ML 0.4 mL Injection Onc e a day Active Ozempic (0.25 or 0.5 MG/DOSE) 2 MG/3ML as directed Subcutaneous Not-Taking oxyCODONE HCl 5 MG 1 tablet as needed Orally every 6 hrs Active Ciprofloxacin HCl 500 MG 1 tablet Orally every 12 hrs; Duration: 7 days 01/16/2025 Active Immunizations Vaccine Route Administration Date Status Comme nts influenza IM Intramuscular 05/23/2024 Administered Problems Problem Type SNOMED Code ICD Code Onset Dates Problem Status W/U Status Risk Notes Problem Vitamin D deficiency (56258242) Vitamin D deficiency, unspecified (E55.9) Active confirmed Problem Overactive bladder (405023176) Overactive bladder (N32.81) Active confirmed Problem Adult health examination (827360419) Encounter for general adult medical examination without abnormal findings (Z00.00) Active confirmed Problem Screening for osteoporosis (710018708) Encounter for screening for osteoporosis (Z13.820) Active confirmed Problem Hyperlipidaemia (70359280) Hyperlipidemia, unspecified hyperlipidemia type (E78.5) Active confirmed Problem Hypothyroidism (50422683) Hypothyroidism, unspecified type (E03.9) Active confirmed Problem Type II diabetes mellitus without complication (093165864) Type 2 diabetes mellitus without complication, without long-term current use of insulin (E11.9) Active confirmed Problem hypercholesterolemia (disorder) (35315529) Hypercholesteremia (E78.00) Active confirmed Problem Subcutaneous mas s of back (R22.2) Active confirmed Problem Artificial knee join t present (602417094479) History of total right knee replacement (TKR) (Z96.651) Active confirmed Problem Anemia (458554275) Anemia (D64.9) Active confir med Problem Mixed incontinence (024811592) Urinary incontinence, mixed (N39.46) Active confirmed Problem Rupture of rotator cuff of shoulder (disorder) (283601483) Incomplete tear of left rotator cuff, unspecified whether traumatic (M75.112) Active confirmed Vital Signs Heart Rate 70 /min 01/16/2025 Blood pressure diastolic 74 mm Hg 01/16/2025 Oximetry 98 % 01/16/2025 Height 64 in 01/16/2025 Blood pressure systolic 108 mm Hg 01/16/2025 Weight 171 lbs 01/16/2025 BMI 29.35 kg/m2 01/16/2025 Encounters Encounter Location Date Provider Diagnosis [facility] [address] [address] 05/23/2024 SAURAV LEIVA Overactive bladder N 32.81 ; Type 2 diabetes mellitus without complication, without long-term current use of insulin E11.9 ; Urinary incontinence, mixed N39.46 ; History of total right knee replacement (TKR) Z96.651 ; Incomplete tear of left rotator cuff, unspecified whether traumatic M75.112 ; Hypercholesteremia E78.00 ; Anemia D64.9 ; Encounter for immunization Z23 and Encounter for screening for osteoporosis Z13.820 [facility] [address] [address] 06/05/2024 SAURAV LEIVA Subcutaneous mass of back R22.2 [facility] [address] 10/14/2024 SAURAV LEIVA Type 2 diabetes cory itus without complication, without long-term current use of insulin E11.9 ; Annual physical exam Z00.00 ; Overactive bladder N32.81 ; Urinary incontinence, mixed N39.46 ; History of total right knee replacement (TKR) Z96.651 ; Incomplete tear of left rotator cuff, unspecified whether traumatic M75.112 ; Hypercholesteremia E78.00 ; Anemia D64.9 and Subcutaneous mass of back R22.2 [facility] [address] [address] 01/16/2025 SAURAV LEIVA Perichondritis M94.8 X9 and Encounter for examination of blood pressure without abnormal findings Z01.30 [facility] [address] [address] 03/05/2024 SAURAV LEIVA [facility] [address] [address] 03/06/2024 SAURAV LEIVA [facility] [address] [address] 05/24/2024 SAURAV BORHOT [facility] [address] [facility] [address] [place] [address] 06/04/2024 SAURAV CARDHOT [facility] [address] [facility] [address] [place] [address] 06/12/2024 SAURAV KYAWHOT [facility] [address] [facility] [address] [place] [address] 06/26/2024 SAURAV BORHOT [facility] [address] [address] 12/02/[address] [facility] [address] [place] [address] 12/13/2024 SAURAV BORHOT [facility] [address] [address] 01/16/2025 SAURAV BORFELICE Assessments Encounter Date Diagnosis (ICD Code) Assessment Notes Treatment Notes Treatment Clinical Notes Section Notes 05/23/2024 Overactive bladder (ICD-10 - N32.81) Acute Concerns/Proble m List: 05/23/2024 _update comprehensive labs Chronic conditions otherwise stable Increase Ozempic to 1 mg Bone density scanning update Flu shot today Of note, some information is being carried forward from prior records for informational purposes only and is being cited so that efficiency, safety and quality of the patient's care is not compromised This note was prepared using voice recognition software and direct typing Please excuse inadvertent yacht master or typing errors, or uncorrected word substitutions Although every attempt has been made by the provider to proofread this document, occasional misspellings and typographical errors may still be present Due to the previous pandemic, and the use of personal protective equipment (PPE) This may decrease voice recognition accuracy Inadvertent yacht master errors may occur 06/05/2024 Subcutaneous mass of back (ICD-10 - R22.2) #subcutaneous mass of back - 4 cm by 2 cm mobile, rubbery, nontender mass palpated in the right lumbar region on physical exam. Refer for soft tissue non-extremity ultrasound. She understands that it is likely a lipoma, and can be removed with in office by surgeon. She will be notified about results F/u in September 2024 10/14/2024 Annual physical exam (ICD-10 - Z00.00) Acute Concerns/Proble m List: 10/14/2024 Start calcium and vitamin D for osteopenia Will continue Ozempic and SGLT2 Excellent glycemic control Of note, some information is being carried forward from prior records for informational purposes only and is being cited so that efficiency, safety and quality of the patient's care is not compromised This note was prepared using voice recognition software and direct typing Please excuse inadvertent yacht master or typing errors, or uncorrected word substitutions Although every attempt has been made by the provider to proofread this document, occasional misspellings and typographical errors may still be present Due to the previous pandemic, and the use of personal protective equipment (PPE) This may decrease voice recognition accuracy Inadvertent yacht master errors may occur 10/14/2024 Type 2 diabetes mellitus without complication, without long-term current use of insulin (ICD-10 - E11.9) Acute Concerns/Proble m List: 10/14/2024 Start calcium and vitamin D for osteopenia Will continue Ozempic and SGLT2 Excellent glycemic control Of note, some information is being carried forward from prior records for informational purposes only and is being cited so that efficiency, safety and quality of the patient's care is not compromised This note was prepared using voice recognition software and direct typing Please excuse inadvertent yacht master or typing errors, or uncorrected word substitutions Although every attempt has been made by the provider to proofread this document, occasional misspellings and typographical errors may still be present Due to the previous pandemic, and the use of personal protective equipment (PPE) This may decrease voice recognition accuracy Inadvertent yacht master errors may occur 01/16/2025 Encounter for examination of blood pressure without abnormal findings (ICD-10 - Z01.30) 01/16/2025 Perichondritis (ICD-10 - M94.8X9) 10/14/2024 Overactive bladder (ICD-10 - N32.81) Acute Concerns/Proble m List: 10/14/2024 Start calcium and vitamin D for osteopenia Will continue Ozempic and SGLT2 Excellent glycemic control Of note, some information is being carried forward from prior records for informational purposes only and is being cited so that efficiency, safety and quality of the patient's care is not compromised This note was prepared using voice recognition software and direct typing Please excuse inadvertent yacht master or typing errors, or uncorrected word substitutions Although every attempt has been made by the provider to proofread this document, occasional misspellings and typographical errors may still be present Due to the previous pandemic, and the use of personal protective equipment (PPE) This may decrease voice recognition accuracy Inadvertent yacht master errors may occur 05/23/2024 Type 2 diabetes mellitus without complication, without long-term current use of insulin (ICD-10 - E11.9) Acute Concerns/Proble m List: 05/23/2024 _update comprehensive labs Chronic conditions otherwise stable Increase Ozempic to 1 mg Bone density scanning update Flu shot today Of note, some information is being carried forward from prior records for informational purposes only and is being cited so that efficiency, safety and quality of the patient's care is not compromised This note was prepared using voice recognition software and direct typing Please excuse inadvertent yacht master or typing errors, or uncorrected word substitutions Although every attempt has been made by the provider to proofread this document, occasional misspellings and typographical errors may still be present Due to the previous pandemic, and the use of personal protective equipment (PPE) This may decrease voice recognition accuracy Inadvertent yacht master errors may occur 05/23/2024 Urinary incontinence , mixed (ICD-10 - N39.46) Acute Concerns/Proble m List: 05/23/2024 _update comprehensive labs Chronic conditions otherwise stable Increase Ozempic to 1 mg Bone density scanning update Flu shot today Of note, some information is being carried forward from prior records for informational purposes only and is being cited so that efficiency, safety and quality of the patient's care is not compromised This note was prepared using voice recognition software and direct typing Please excuse inadvertent yacht master or typing errors, or uncorrected word substitutions Although every attempt has been made by the provider to proofread this document, occasional misspellings and typographical errors may still be present Due to the previous pandemic, and the use of personal protective equipment (PPE) This may decrease voice recognition accuracy Inadvertent yacht master errors may occur 10/14/2024 Urinary incontinence , mixed (ICD-10 - N39.46) Acute Concerns/Proble m List: 10/14/2024 Start calcium and vitamin D for osteopenia Will continue Ozempic and SGLT2 Excellent glycemic control Of note, some information is being carried forward from prior records for informational purposes only and is being cited so that efficiency, safety and quality of the patient's care is not compromised This note was prepared using voice recognition software and direct typing Please excuse inadvertent yacht master or typing errors, or uncorrected word substitutions Although every attempt has been made by the provider to proofread this document, occasional misspellings and typographical errors may still be present Due to the previous pandemic, and the use of personal protective equipment (PPE) This may decrease voice recognition accuracy Inadvertent yacht master errors may occur 10/14/2024 History of total right knee replacement (TKR) (ICD-10 - Z96.651) Acute Concerns/Proble m List: 10/14/2024 Start calcium and vitamin D for osteopenia Will continue Ozempic and SGLT2 Excellent glycemic control Of note, some information is being carried forward from prior records for informational purposes only and is being cited so that efficiency, safety and quality of the patient's care is not compromised This note was prepared using voice recognition software and direct typing Please excuse inadvertent yacht master or typing errors, or uncorrected word substitutions Although every attempt has been made by the provider to proofread this document, occasional misspellings and typographical errors may still be present Due to the previous pandemic, and the use of personal protective equipment (PPE) This may decrease voice recognition accuracy Inadvertent yacht master errors may occur 05/23/2024 History of total right knee replacement (TKR) (ICD-10 - Z96.651) Acute Concerns/Proble m List: 05/23/2024 _update comprehensive labs Chronic conditions otherwise stable Increase Ozempic to 1 mg Bone density scanning update Flu shot today Of note, some information is being carried forward from prior records for informational purposes only and is being cited so that efficiency, safety and quality of the patient's care is not compromised This note was prepared using voice recognition software and direct typing Please excuse inadvertent yacht master or typing errors, or uncorrected word substitutions Although every attempt has been made by the provider to proofread this document, occasional misspellings and typographical errors may still be present Due to the previous pandemic, and the use of personal protective equipment (PPE) This may decrease voice recognition accuracy Inadvertent yacht master errors may occur 05/23/2024 Incomplete tear of left rotator cuff, unspecified whether traumatic (ICD-10 - M75.112) Acute Concerns/Proble m List: 05/23/2024 _update comprehensive labs Chronic conditions otherwise stable Increase Ozempic to 1 mg Bone density scanning update Flu shot today Of note, some information is being carried forward from prior records for informational purposes only and is being cited so that efficiency, safety and quality of the patient's care is not compromised This note was prepared using voice recognition software and direct typing Please excuse inadvertent yacht master or typing errors, or uncorrected word substitutions Although every attempt has been made by the provider to proofread this document, occasional misspellings and typographical errors may still be present Due to the previous pandemic, and the use of personal protective equipment (PPE) This may decrease voice recognition accuracy Inadvertent yacht master errors may occur 10/14/2024 Incomplete tear of left rotator cuff, unspecified whether traumatic (ICD-10 - M75.112) Acute Concerns/Proble m List: 10/14/2024 Start calcium and vitamin D for osteopenia Will continue Ozempic and SGLT2 Excellent glycemic control Of note, some information is being carried forward from prior records for informational purposes only and is being cited so that efficiency, safety and quality of the patient's care is not compromised This note was prepared using voice recognition software and direct typing Please excuse inadvertent yacht master or typing errors, or uncorrected word substitutions Although every attempt has been made by the provider to proofread this document, occasional misspellings and typographical errors may still be present Due to the previous pandemic, and the use of personal protective equipment (PPE) This may decrease voice recognition accuracy Inadvertent yacht master errors may occur 10/14/2024 Hypercholesteremia (ICD-10 - E78.00) Acute Concerns/Proble m List: 10/14/2024 Start calcium and vitamin D for osteopenia Will continue Ozempic and SGLT2 Excellent glycemic control Of note, some information is being carried forward from prior records for informational purposes only and is being cited so that efficiency, safety and quality of the patient's care is not compromised This note was prepared using voice recognition software and direct typing Please excuse inadvertent yacht master or typing errors, or uncorrected word substitutions Although every attempt has been made by the provider to proofread this document, occasional misspellings and typographical errors may still be present Due to the previous pandemic, and the use of personal protective equipment (PPE) This may decrease voice recognition accuracy Inadvertent yacht master errors may occur 05/23/2024 Hypercholesteremia (ICD-10 - E78.00) Acute Concerns/Proble m List: 05/23/2024 _update comprehensive labs Chronic conditions otherwise stable Increase Ozempic to 1 mg Bone density scanning update Flu shot today Of note, some information is being carried forward from prior records for informational purposes only and is being cited so that efficiency, safety and quality of the patient's care is not compromised This note was prepared using voice recognition software and direct typing Please excuse inadvertent yacht master or typing errors, or uncorrected word substitutions Although every attempt has been made by the provider to proofread this document, occasional misspellings and typographical errors may still be present Due to the previous pandemic, and the use of personal protective equipment (PPE) This may decrease voice recognition accuracy Inadvertent yacht master errors may occur 05/23/2024 Anemia (ICD-10 - D64.9) Acute Concerns/Proble m List: 05/23/2024 _update comprehensive labs Chronic conditions otherwise stable Increase Ozempic to 1 mg Bone density scanning update Flu shot today Of note, some information is being carried forward from prior records for informational purposes only and is being cited so that efficiency, safety and quality of the patient's care is not compromised This note was prepared using voice recognition software and direct typing Please excuse inadvertent yacht master or typing errors, or uncorrected word substitutions Although every attempt has been made by the provider to proofread this document, occasional misspellings and typographical errors may still be present Due to the previous pandemic, and the use of personal protective equipment (PPE) This may decrease voice recognition accuracy Inadvertent yacht master errors may occur 10/14/2024 Anemia (ICD-10 - D64.9) Acute Concerns/Proble m List: 10/14/2024 Start calcium and vitamin D for osteopenia Will continue Ozempic and SGLT2 Excellent glycemic control Of note, some information is being carried forward from prior records for informational purposes only and is being cited so that efficiency, safety and quality of the patient's care is not compromised This note was prepared using voice recognition software and direct typing Please excuse inadvertent yacht master or typing errors, or uncorrected word substitutions Although every attempt has been made by the provider to proofread this document, occasional misspellings and typographical errors may still be present Due to the previous pandemic, and the use of personal protective equipment (PPE) This may decrease voice recognition accuracy Inadvertent yacht master errors may occur 10/14/2024 Subcutaneous mass of back (ICD-10 - R22.2) Acute Concerns/Proble m List: 10/14/2024 Start calcium and vitamin D for osteopenia Will continue Ozempic and SGLT2 Excellent glycemic control Of note, some information is being carried forward from prior records for informational purposes only and is being cited so that efficiency, safety and quality of the patient's care is not compromised This note was prepared using voice recognition software and direct typing Please excuse inadvertent yacht master or typing errors, or uncorrected word substitutions Although every attempt has been made by the provider to proofread this document, occasional misspellings and typographical errors may still be present Due to the previous pandemic, and the use of personal protective equipment (PPE) This may decrease voice recognition accuracy Inadvertent yacht master errors may occur 05/23/2024 Encounter for immunization (ICD-10 - Z23) Acute Concerns/Proble m List: 05/23/2024 _update comprehensive labs Chronic conditions otherwise stable Increase Ozempic to 1 mg Bone density scanning update Flu shot today Of note, some information is being carried forward from prior records for informational purposes only and is being cited so that efficiency, safety and quality of the patient's care is not compromised This note was prepared using voice recognition software and direct typing Please excuse inadvertent yacht master or typing errors, or uncorrected word substitutions Although every attempt has been made by the provider to proofread this document, occasional misspellings and typographical errors may still be present Due to the previous pandemic, and the use of personal protective equipment (PPE) This may decrease voice recognition accuracy Inadvertent yacht master errors may occur 05/23/2024 Encounter for screening for osteoporosis (ICD-10 - Z13.820) Acute Concerns/Proble m List: 05/23/2024 _update comprehensive labs Chronic conditions otherwise stable Increase Ozempic to 1 mg Bone density scanning update Flu shot today Of note, some information is being carried forward from prior records for informational purposes only and is being cited so that efficiency, safety and quality of the patient's care is not compromised This note was prepared using voice recognition software and direct typing Please excuse inadvertent yacht master or typing errors, or uncorrected word substitutions Although every attempt has been made by the provider to proofread this document, occasional misspellings and typographical errors may still be present Due to the previous pandemic, and the use of personal protective equipment (PPE) This may decrease voice recognition accuracy Inadvertent yacht master errors may occur Plan Of Treatment Pending Test Test Name Order Date Bone Density 05/23/2024 25OH VITAMIN D 02/26/2024 FERRITIN 02/26/2024 HEMOGLOBIN A1C 02/26/2024 IRON & TIBC 02/26/2024 LIPID PANEL 02/26/2024 TSH 02/26/2024 URINALYSIS W/REFLEX CULTURE 02/26/2024 CBC with Differential 02/26/2024 US Extremity Nonvasc Ltd 06/05/2024 Insurance Providers Payer Name Payer Address Payer Phone Subscriber Number Group Number Insured Name Patient Relationship to Insured Coverage Start Date Coverage End Date [facility] [address] [place] [address] [id number] Audrey Askew Self - patient is the insured Medical (General) History Medical History History ICD Code diabetes high cholesterol arthritis anemia Hospitalization History Reason Date(Month/Year) TKR 04/2023 hip fracture 04/2024
--- OUTSIDE RECORDS SUMMARY | 2025-03-05 13:05 | XMS_ITS ---
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 [facility] 06/24/2024 Ambulatory Follow-up [facility] 03/25/2024 Ambulatory Strain of muscle(s) and tendon(s) of the rotator cuff of left shoulder, initial encounter Strain of muscle(s) and tendon(s) of the rotator cuff of left shoulder, initial encounter [facility] 02/05/2024 Ambulatory [facility] 01/22/2024 Ambulatory Strain of muscle(s) and tendon(s) of the rotator cuff of left shoulder, initial encounter Strain of muscle(s) and tendon(s) of the rotator cuff of left shoulder, initial encounter [facility] 01/22/2024 Care Team Organization Name Specialty Phone Email Start Date End [facility]/22[facility]2024 [id number] 01/01/2024
== END 2025-03-05 13:24 | disposition home or self-care (01) ==
PROVIDERS: Emergency Provider Emergency Medicine Emergency Medical Services; PCP Nurse Practitioner Acute Care
DX: S81.011A Laceration without foreign body, right knee, initial encounter (principal); S80.01XA Contusion of right knee, initial encounter; M25.561 Pain in right knee; M25.552 Pain in left hip; M25.461 Effusion, right knee; R11.0 Nausea; X58.XXXA Exposure to other specified factors, initial encounter; W01.10XA Fall on same level from slipping, tripping and stumbling with subsequent striking against unspecified object, initial encounter; Y93.01 Activity, walking, marching and hiking; Y92.239 Unspecified place in hospital as the place of occurrence of the external cause; Y99.0 Civilian activity done for income or pay; Z79.899 Other long term (current) drug therapy
CPT/HCPCS: 73564; 99283; 99284

== ENCOUNTER → 2025-03-05 11:35 | Outpatient (BNV) | payer BC, OTHER, SELFPAY | PROVIDERS: Emergency Provider Emergency Medicine Emergency Medical Services; PCP Nurse Practitioner Acute Care; Visit Provider Radiology Diagnostic Radiology | DX: M25.461 Effusion, right knee (principal) | CPT/HCPCS: 73564 ==

== ENCOUNTER → 2025-03-06 09:21 | Outpatient (BNVA) | payer OTHER, SELFPAY | PROVIDERS: PCP Nurse Practitioner Acute Care | DX: Z13.89 Encounter for screening for other disorder (principal) | CPT/HCPCS: 99204 ==

== ENCOUNTER → 2025-08-20 10:38 | Outpatient (BNVA) | payer OTHER, SELFPAY | PROVIDERS: Visit Provider Physician Assistant Medical | DX: Z13.89 Encounter for screening for other disorder (principal) | CPT/HCPCS: 99202 ==